=== PATIENT | male | born 1980 | race African-American/Black ===

== ENCOUNTER 2022-02-15 17:01 | Inpatient (IN) ==
--- NOTE | 2022-02-15 17:07 | ED Triage Note ---
Date of Service February 15, 2022 History of Present Illness This patient was briefly evaluated while in triage. An abbreviated physical exam was performed. This patient is a 41-year-old Male with no significant past medical history who presents to the ED for evaluation of left elbow and forearm injury. Left elbow pain. Pt. states "I fell on a truck bed I was cutting apart." Pt. states [facility] referred him here due to fracture and metal pieces in the left elbow. ME documentation notes possible sail sign, suspected radial head fracture, 9mm metal wire FB within the soft tissues of the forearm. Physical Exam VITALS: Vitals are noted on the nurse's note and reviewed by myself. GENERAL: This is a 41 year old black male, in no acute distress, nondiaphoretic, well-developed well-nourished. SKIN: No erythema, edema, ecchymosis HEAD: Normocephalic atraumatic. NECK: No JVD. LUNGS: No retractions or accessory muscle use. MUSCULOSKELETAL: Normal gait. Pt. in an arm sling and splint. NEURO: Patient was alert and oriented to person place and time. No focal neurological deficits. Initial orders for labs and / or imaging were placed and patient was placed in the waiting area until a bed is available. Please see further documentation for the full ED course. MDM / Impression Impression Impression: Olecranon bursitis of left elbow, Cellulitis of left forearm
[2022-02-15 18:40] LABS: Basophils # (auto) 0.04 K/uL (0-0.2); Basophils % (auto) 0.3 %; Eosinophils # (auto) 0.11 K/uL (0-0.50); Eosinophils % (auto) 0.8 %; Hemoglobin 12.5 g/dl (14.0-18.0); Immature Granulocytes # (auto) 0.04 K/uL (0.00-0.02); Immature Granulocytes % (auto) 0.3 %; Lymphocytes % (auto) 14.5 %; Mean Corpuscular Hemoglobin 27.5 pg (25.0-34.0); Mean Corpuscular Hgb Conc 33.8 g/dL (32.0-36.0); Mean Corpuscular Volume 81.3 fL (80.0-100.0); Mean Platelet Volume 9.6 fL (9.4-12.4); Monocytes % (auto) 6.1 %; Neutrophils # (auto) 10.24 K/uL (1.4-6.5); Platelet Count 337 K/uL (130-400); RDW Coefficient of Variation 13.2 % (11.5-14.5); RDW Standard Deviation 38.5 fL (36.4-46.3); Red Blood Count 4.55 M/uL (4.63-6.08); White Blood Count 13.13 K/ul (4.8-10.8)
--- NOTE | 2022-02-15 19:03 | XRay Report ---
XR elbow LT min 3V routine CLINICAL HISTORY: Fall , now edema, pain, erythema, chills. COMPARISON STUDY: No previous studies for comparison. TECHNIQUE: 3 left elbow views FINDINGS: Bones: There is no evidence for an acute fracture or dislocation. There is no lytic or blastic lesion . Joints: The joint spaces are maintained. There is no evidence for an intra-articular effusion or elev ation of the fat pads. The bones are in anatomic alignment. Soft tissues: There is soft tissue swelling seen surrounding the dorsum of the elbow which can be see n with olecranon bursitis. There is no radiopaque foreign body. IMPRESSION: 1. No acute osseous pathology. 2. Soft tissue swelling suspicious for olecranon bursitis. ACT 112: Negative or not required by law. Electronically signed by: Travon Spear M.D. 02/15/2022 7:02 PM
[2022-02-15] MEDS ORDERED: MoRPHine SULFATE 4 MG/ML 1 ML CARP\\VIAL IV STA (19:09)
[2022-02-15] MEDS ORDERED: ONDANSETRON INJ 2 MG/ML 2 ML VIAL IV STA (19:09)
[2022-02-15] MEDS ORDERED: SODIUM CHLORIDE 0.9% 1000ML 1,000 ML IV SCH (19:15)
[2022-02-15 19:25] LABS: Albumin Globulin Ratio 1.1 (0.9-2); Albumin Level 3.8 gm/dl (3.4-5.0); BUN Creatinine Ratio 24.1 (10-20); Bilirubin,Total 0.4 mg/dl (0.2-1.0); Calcium 8.7 mg/dl (8.5-10.1); Creatinine Clr Calc Pharmacy 192.1 ml/min; Est GFR (African American) 131.1 ml/min; Est GFR (Non-African American) 113.1 ml/min; Globulin 3.5 gm/dl (2.5-4.0); Total Protein 7.3 gm/dl (6.0-8.3)
[2022-02-15] MEDS ORDERED: OPTIRAY 320 125ml IV ONE (20:05)
--- NOTE | 2022-02-15 20:25 | CT Scan Report ---
CT forearm LT w con CLINICAL HISTORY: Fall, L elbow/forearm pain COMPARISON STUDY: Standard radiographs from 02/15/2022 CT DOSE: 480.24 mGy.cm TECHNIQUE: Standard CT of the left elbow is performed without IV contrast. Multiplanar reconstruction is performed. A dose lowering technique was utilized adhering to the principles of ALARA. FINDINGS: Bones: There is no evidence for an acute fracture or dislocation. There are no lytic or blastic lesio ns. Joints: There is moderate narrowing of the joint spaces of the elbow with subchondral sclerosis, subc hondral cyst formation or marginal osteophyte formation. Findings are consistent with old trauma and degenerative changes. There is no evidence for an intra-articular effusion. The bones are in anatomic alignment. Soft tissues: There is soft tissue swelling surrounding the elbow including the olecranon bursa and e xtending along the dorsum of the forearm. Findings are characteristic of possible cellulitis. Olecran on bursitis is also present. There are also 2, 2 mm metallic densities along the dorsum of the forearm characteristic of small for eign bodies within the soft tissues of the skin. IMPRESSION: 1. No acute osseous pathology. 2. Evidence for narrowing of the elbow joint spaces with secondary degenerative changes present joshua cteristic of old posttraumatic degenerative change. 3. No evidence for an intra-articular effusion. 4. Olecranon bursitis and evidence for cellulitis extending along the dorsum of the forearm. 5. 2, 2 mm metallic foreign bodies along the skin surface of the dorsum of the forearm. ACT 112: Negative or not required by law. Electronically signed by: Travon Spear M.D. 02/15/2022 8:23 PM
[2022-02-15] MEDS ORDERED: ceFAZolin 2000MG 2,000 MG/15 ML SYR IV STA (20:52)
[2022-02-15] MEDS ORDERED: DAPTOmycin 650 MG in SYRINGE 0 ML IV STA (20:56)
--- NOTE | 2022-02-15 21:43 | Emergency Department Note ---
History of Present Illness General Chief complaint: Elbow Injury/Pain Stated complaint: HURT L ELBOW AT WORK. WC Time Seen by Provider: 02/15/22 17:53 History of Present Illness Maximum Pain Intensity: 4 This is a 41-year-old male that presents to the emergency department [facility] with complaints of "left arm pain". Patient notes that this past he fell while at work. He notes that he struck his left elbow against a chaz object. He notes that there was a piece of metal protruding from his left elbow of which he removed. He notes that he did clean the region. He then had some chills at home over the weekend and upon returning to work today he noted significant discomfort to the left elbow and swelling. Patient notes that the swelling and warmth seemed to significantly worsen this morning. Patient denies any fevers. Patient denies any recent antibiotic use. Home Medications Medication Instructions Recorded Confirmed Type lisinopril 20 mg tablet 20 mg PO HS 02/16/21 02/15/22 History albuterol sulfate 90 mcg/actuation 2 puff inhalation Q4H PRN 02/15/22 02/15/22 H istory aerosol inhaler COUGH/SHORTNESS OF BREATH metformin 500 mg tablet 500 mg PO HS 02/15/22 02/15/22 History Allergies Allergy/AdvReac Type Severity Reaction Status Date / Time No Known Allergies Allergy Verified 02/15/22 20:55 Past Med/Surg History Medical History Hypertension Surgical History Hx of appendectomy Social History Smoking Status: Current some day smoker Feels Safe at Home: Yes Review of Systems A total of 10 systems reviewed and were otherwise negative Physical Exam Vital Signs Vital Signs - 24 hr 02/15/22 17:05 02/15/22 18:23 02/15/22 19:20 Temperature 36.3 C L Temperature Source Skin Pulse Rate 114 H Pulse Rate [Finger] 105 H 103 H Pulse Rhythm Regular Pulse Rhythm [Finger] Regular Pulse Strength Normal Pulse Strength [Finger] Normal Respiratory Rate 16 18 20 Respiratory Effort / Characteristics Non-Labored Spontaneous Non-Labored Spontaneous Respiratory Depth Normal Normal Normal Respiratory Pattern Regular Regular Blood Pressure 161/111 H Blood Pressure [Left Arm] 144/107 H 146/89 H Blood Pressure Mean 127 Blood Pressure Mean [Left Arm] 119 108 Blood Pressure Position Sitting Blood Pressure Position [Left Arm] Lying Pulse Oximetry 96 97 100 Oxygen Delivery Method Room Air Room Air Room Air Sepsis Recent Fever Within 48 Hours No Sepsis New/Unexplained Change in Mental Status No Sepsis Action Taken by Nursing No Action Required 02/15/22 20:58 Temperature Temperature Source Pulse Rate Pulse Rate [Finger] 105 H Pulse Rhythm Pulse Rhythm [Finger] Pulse Strength Pulse Strength [Finger] Respiratory Rate 18 Respiratory Effort / Characteristics Respiratory Depth Normal Respiratory Pattern Blood Pressure Blood Pressure [Left Arm] 139/92 Blood Pressure Mean Blood Pressure Mean [Left Arm] 107 Blood Pressure Position Blood Pressure Position [Left Arm] Pulse Oximetry 98 Oxygen Delivery Method Room Air Sepsis Recent Fever Within 48 Hours Sepsis New/Unexplained Change in Mental Status Sepsis Action Taken by Nursing VITAL SIGNS - Vital signs and nursing notes were reviewed. Stable and afebrile. GENERAL -41-year-old male appearing his stated age who is in no acute distress. Communicates well with provider and answers questions appropriately. SKIN -diffuse edema noted to the left elbow and proximal left forearm region with mild erythematous hue to the dorsal aspect of the left proximal forearm. 2 small healing breaks in the integument overlying the dorsal left elbow region. LUNGS - Chest wall symmetric without accessory muscle use, intercostals retractions, or central cyanosis. Normal vesicular breath sounds CTA B/L. No wheezes, rales, or rhonchi appreciated. CARDIAC - RRR with S1/S2. No murmur, rubs, or gallops appreciated. EXTREMITIES - No clubbing or peripheral cyanosis. Decreased range of motion of the left elbow secondary to pain overlying the dorsal aspect of the left elbow. Point tenderness to the left olecranon and surrounding soft tissue regions. No fluctuance. Significant soft tissue edema noted to the left dorsal elbow/left dorsal proximal forearm region. +5/5 strength noted in UE/LE bilaterally. NEUROLOGIC - Cranial nerves II through XII grossly intact. PSYCH - A&O, and cooperates fully with examiner. Pt is very pleasant and interacts well with examiner. Course Administered Medications Discontinued Medications Sodium Chloride (Nss 1000ml) 1,000 mls @ 999 mls/hr IV .Q1H1M GILBERT Stop: 02/15/22 20:15 Last Infusion: 02/15/22 20:22 Dose: 0 mls/hr Documented By: Admin: 02/15/22 19:20 Dose: 999 mls/hr Documented By: KATLYN Cefazolin Sodium (Ancef 2000mg) 2,000 mg in 15 mls @ 3.75 mls/min IV NOW STA Stop: 02/15/22 20:55 Last Admin: 02/15/22 20:58 Dose: 3.75 mls/min Documented By: KATLYN Daptomycin 650 mg/ Syringe 13 mls @ 6.5 mls/min IV NOW STA; Protocol Stop: 02/15/22 20:57 Last Admin: 02/15/22 21:29 Dose: 6.5 mls/min Documented By: KATLYN Ioversol (Optiray 320 125ml) 120 ml IV ONCE ONE Stop: 02/15/22 20:06 Last Admin: 02/15/22 20:06 Dose: 120 ml Documented By: SCARLET Morphine Sulfate (Morphine Sulfate 4 Mg/Ml 1 Ml Carp\\Vial) 4 mg IV NOW STA Stop: 02/15/22 19:10 Last Admin: 02/15/22 19:16 Dose: 4 mg Documented By: KATLYN Ondansetron HCl (Ondansetron Inj 2 Mg/Ml 2 Ml Vial) 4 mg IV NOW STA Stop: 02/15/22 19:10 Last Admin: 02/15/22 19:16 Dose: 4 mg Documented By: KATLYN Medical Decision Making Laboratory Data Result diagrams: 02/15/22 18:15 02/15/22 18:15 Lab Results 02/15/22 02/15/22 02/15/22 Range/Units 18:15 18:15 18:15 WBC 13.13 H (4.8-10.8) K/ul RBC 4.55 L (4.63-6.08) M/uL Hgb 12.5 L (14.0-18.0) g/dl Hct 37.0 L (40.1-51.0) % MCV 81.3 (80.0-100.0) fL MCH 27.5 (25.0-34.0) pg MCHC 33.8 (32.0-36.0) g/dL RDW Std Deviation 38.5 (36.4-46.3) fL RDW Coeff of Felton 13.2 (11.5-14.5) % Plt Count 337 (130-400) K/uL MPV 9.6 (9.4-12.4) fL Immature Gran % (Auto) 0.3 % Neut % (Auto) 78.0 % Lymph % (Auto) 14.5 % Charles % (Auto) 6.1 % Eos % (Auto) 0.8 % Baso % (Auto) 0.3 % Neut # (Auto) 10.24 H (1.4-6.5) K/uL Lymph # (Auto) 1.90 (1.2-3.4) K/uL Charles # (Auto) 0.80 (0.24-0.82) K/uL Eos # (Auto) 0.11 (0-0.50) K/uL Baso # (Auto) 0.04 (0-0.2) K/uL Immature Gran # (Auto) 0.04 H (0.00-0.02) K/uL Sodium (136-145) mmol/L Potassium (3.5-5.1) mmol/L Chloride (98-107) mmol/L Carbon Dioxide (21-32) mmol/L Anion Gap (3-11) BUN (6-23) mg/dl Creatinine (0.6-1.4) mg/dl Est Cr Clr Drug Dosing ml/min Est GFR ( Amer) ml/min Est GFR (Non-Af Amer) ml/min BUN/Creatinine Ratio (10-20) Glucose (70-99(Fasting)) mg/dl Lactate 1.8 (0.4-2.0) mmol/L Calcium (8.5-10.1) mg/dl Total Bilirubin (0.2-1.0) mg/dl AST (13-39) U/L ALT (7-52) U/L Alkaline Phosphatase (34-104) U/L Total Protein (6.0-8.3) gm/dl Albumin (3.4-5.0) gm/dl Globulin (2.5-4.0) gm/dl Albumin/Globulin Ratio (0.9-2) Procalcitonin < 0.05 (0-0.5) ng/ml SARS-CoV-2, RNA, NAAT (NEGATIVE) 02/15/22 02/15/22 Range/Units 18:15 21:00 WBC (4.8-10.8) K/ul RBC (4.63-6.08) M/uL Hgb (14.0-18.0) g/dl Hct (40.1-51.0) % MCV (80.0-100.0) fL MCH (25.0-34.0) pg MCHC (32.0-36.0) g/dL RDW Std Deviation (36.4-46.3) fL RDW Coeff of Felton (11.5-14.5) % Plt Count (130-400) K/uL MPV (9.4-12.4) fL Immature Gran % (Auto) % Neut % (Auto) % Lymph % (Auto) % Charles % (Auto) % Eos % (Auto) % Baso % (Auto) % Neut # (Auto) (1.4-6.5) K/uL Lymph # (Auto) (1.2-3.4) K/uL Charles # (Auto) (0.24-0.82) K/uL Eos # (Auto) (0-0.50) K/uL Baso # (Auto) (0-0.2) K/uL Immature Gran # (Auto) (0.00-0.02) K/uL Sodium 136 (136-145) mmol/L Potassium 4.0 (3.5-5.1) mmol/L Chloride 103 (98-107) mmol/L Carbon Dioxide 25 (21-32) mmol/L Anion Gap 8 (3-11) BUN 19 (6-23) mg/dl Creatinine 0.79 (0.6-1.4) mg/dl Est Cr Clr Drug Dosing 192.1 ml/min Est GFR ( Amer) 131.1 ml/min Est GFR (Non-Af Amer) 113.1 ml/min BUN/Creatinine Ratio 24.1 H (10-20) Glucose 128 H (70-99(Fasting)) mg/dl Lactate (0.4-2.0) mmol/L Calcium 8.7 (8.5-10.1) mg/dl Total Bilirubin 0.4 (0.2-1.0) mg/dl AST 17 (13-39) U/L ALT 21 (7-52) U/L Alkaline Phosphatase 63 (34-104) U/L Total Protein 7.3 (6.0-8.3) gm/dl Albumin 3.8 (3.4-5.0) gm/dl Globulin 3.5 (2.5-4.0) gm/dl Albumin/Globulin Ratio 1.1 (0.9-2) Procalcitonin (0-0.5) ng/ml SARS-CoV-2, RNA, NAAT NEGATIVE (NEGATIVE) Imaging Data Radiologist's Impression: Elbow X-Ray 02/15/22 18:09 XR elbow LT min 3V routine CLINICAL HISTORY: Fall , now edema, pain, erythema, chills. COMPARISON STUDY: No previous studies for comparison. TECHNIQUE: 3 left elbow views FINDINGS: Bones: There is no evidence for an acute fracture or dislocation. There is no lytic or blastic lesion. Joints: The joint spaces are maintained. There is no evidence for an intra- articular effusion or elevation of the fat pads. The bones are in anatomic alig nment. Soft tissues: There is soft tissue swelling seen surrounding the dorsum of the elbow which can be seen with olecranon bursitis. There is no radiopaque foreign body. IMPRESSION: 1. No acute osseous pathology. 2. Soft tissue swelling suspicious for olecranon bursitis. ACT 112: Negative or not required by law. Electronically signed by: Travon Spear M.D. 02/15/2022 7:[address] 02/15/22 19:32 CT forearm LT w con CLINICAL HISTORY: Fall, L elbow/forearm pain COMPARISON STUDY: Standard radiographs from 02/15/2022 CT DOSE: 480.24 mGy.cm TECHNIQUE: Standard CT of the left elbow is performed without IV contrast. Multiplanar reconstruction is performed. A dose lowering technique was utilized adhering to the principles of ALARA. FINDINGS: Bones: There is no evidence for an acute fracture or dislocation. There are no lytic or blastic lesions. Joints: There is moderate narrowing of the joint spaces of the elbow with subchondral sclerosis, subchondral cyst formation or marginal osteophyte formation. Findings are consistent with old trauma and degenerative changes. T here is no evidence for an intra-articular effusion. The bones are in anatomic alignment. Soft tissues: There is soft tissue swelling surrounding the elbow including the olecranon bursa and extending along the dorsum of the forearm. Findings are characteristic of possible cellulitis. Olecranon bursitis is also present. There are also 2, 2 mm metallic densities along the dorsum of the forearm characteristic of small foreign bodies within the soft tissues of the skin. IMPRESSION: 1. No acute osseous pathology. 2. 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 3. No evidence for an intra-articular effusion. 4. Olecranon bursitis and evidence for cellulitis extending along the dorsum of the forearm. 5. 2, 2 mm metallic foreign bodies along the skin surface of the dorsum of the forearm. ACT 112: Negative or not required by law. Electronically signed by: Travon Spear M.D. 02/15/2022 8:23 PM MDM Narrative Patient was seen and evaluated as above in room D02. Review was performed of nursing notes and vital signs. After obtaining a thorough history and physical examination the above work up was performed. Patient presents to us today for evaluation of a left elbow region injury that occurred this past while at work. He was referred by [employer]. He was in a well-padded Ortho-Glass splint on arrival. This was removed. There is concern for olecranon bursitis with surrounding cellulitis clinically. Options of care were discussed with the patient. We were not able to successfully upload the imaging from [facility] [employer]. Dedicated films were obtained here with results as above. No fracture. The radiopaque foreign bodies are not in the area of concern and are felt to be incidental. Patient does note that the metallic foreign body that he had when he fell he already removed on his own. There is no foreign body in that area on examination today. CT imaging was obtained of the left elbow region. There is concern for olecranon bursitis and cellulitis overlying the dorsal forearm area which clinically correlates. He was medicated with IV morphine for pain and IV Zofran for any nausea. He was given IV fluids. Labs reveal leukocytosis 13.13. Mild anemia with hemoglobin of 12.5. No emergent metabolic disturbance. Mild hyperglycemia 128. Pro-Jan negative. Lactate normal. COVID test negative. I do believe that further treatment in the inpatient setting is warranted in regard to IV antibiotics for the left forearm cellulitis. I will start him on IV Ancef as well as IV daptomycin. Daptomycin was chosen for vancomycin given the clinical scenario. I did discuss dosing with pharmacy staff. Case discussed with the hospitalist. Please refer to further documentation regarding his stay. GCS: 15 In the evaluation and treatment of this patient the following differential diagnoses were entertained: Fracture, dislocation, subluxation, contusion, abscess, cellulitis, bursitis, septic joint, among others Impression & Plan Olecranon bursitis of left elbow, Cellulitis of left forearm Discharge Plan Visit Data Chief Complaint: Elbow Injury/Pain Stated Complaint: HURT L ELBOW AT WORK. WC ED Provider: Tee Castillo ED Midlevel Provider: En Reese Discharge Problem: Olecranon bursitis of left elbow, Cellulitis of left forearm Patient Disposition: Admitted As Inpatient Condition: Good Forms Stand Alone Forms: [facility] Prescriptions Prescriptions: No Action metformin 500 mg tablet 500 mg PO HS albuterol sulfate 90 mcg/actuation HFA aerosol inhaler 2 puff INHALATION Q4H PRN (Reason: COUGH/SHORTNESS OF BREATH) lisinopril 20 mg tablet 20 mg PO HS Referrals Referrals: Bindu Johnson PA-C [Primary Care Provider] -
[2022-02-15] MEDS ORDERED: KETOROLAC 30 MG/ML VIAL IV STA (22:26)
--- NOTE | 2022-02-16 02:05 | History and Physical Report ---
DATE OF ADMISSION: 02/15/2022. CHIEF COMPLAINT: Left olecranon bursitis and cellulitis. HISTORY OF PRESENT ILLNESS: This 41-year-old male with past medical history significant for prediabetes, hypertension, morbid obesity comes because of left elbow infection. The patient says last , he fell on the left elbow on rusted objects. There was a foreign body, which he took it off and by the weekend,elbow got swollen up and [facility] showed some foreign body and thought there could be some fracture and sent to the hospital ER. In the ER, CAT scan was done and it showed olecranon bursitis and cellulitis and two 2-mm metallic foreign bodies along the skin surface on the dorsum of the forearm. The patient was given IV dapto and Keflex in the ER, and given pain medication. Currently, says still there is some pain and he has painful movements at the left elbow.He is afebrile, hemodynamically stable. Denies any headache, no dizziness, no blurred visions, no earache, no runny nose, no sore throat, no cough, no chest pain, no shortness of breath, no nausea, no abdominal pain. Normal bowel and bladder movements. ALLERGIES: No known drug allergies. PAST MEDICAL HISTORY: As mentioned above. PAST SURGICAL HISTORY: Appendectomy, dental surgery. MEDICATIONS: The patient is on lisinopril 20 mg p.o. daily, metformin 500 mg p.o. at bedtime, albuterol 2 puffs inhalation q.4h. p.r.n. FAMILY HISTORY: Significant for brother has alcoholism; daughter cancer of the skin long the ear,; mother has thyroid disorder, hepatitis; brother has hypothermia, overdose. PAST MEDICAL HISTORY: As mentioned above. SOCIAL HISTORY: No smoking, no alcohol currently. Marijuana 2-3 times weekly as per the Epic. REVIEW OF SYSTEMS: As per HPI. Rest of review of systems is negative. PHYSICAL EXAMINATION: GENERAL: The patient is obese, not in acute distress. VITAL SIGNS: Temperature 36.3, pulse 97, respiratory rate 20, blood pressure 138/95, oxygen 97% on room air. HEENT: Pupils equal, round and reactive to light. Oral mucosa moist. NECK: No JVD. No neck masses seen. CARDIOVASCULAR: S1 and S2 heard. Regular rate and rhythm. No murmur, no gallop. RESPIRATORY SYSTEM: Normal AP diameter. No accessory muscle use. No wheezing, no crackles. ABDOMEN: Soft, bowel sounds present, nontender, no distention. CENTRAL NERVOUS SYSTEM: Cranial nerves II through XII are grossly intact, nonfocal. EXTREMITIES: Left elbow is swollen, had painful movements. No lower extremity edema present. LABORATORY DATA: WBC 13.1, hemoglobin 12.5, hematocrit 37, platelets 137. Sodium 136, potassium 4, chloride 103, bicarbonate 25, BUN 19, creatinine 0.7, serum glucose 128, lactate 1.8, calcium 8.7, total bilirubin 0.4, AST 17, ALT 21, alkaline phosphatase 63. Procalcitonin less than 0.05. SARS-CoV-2 rapid test negative. IMAGING DATA: Elbow x-ray on the left side, no acute osseous pathology, soft tissue swelling suspicious for olecranon bursitis. Forearm CT, no acute osseous pathology. No evidence for narrowing of the elbow joint spaces with secondary degenerative changes, persistent characteristics of old posttraumatic degenerative change. No evidence for any intraarticular effusion. Olecranon bursitis and evidence for cellulitis extending along the dorsum of the forearm. Two 2-mm metallic foreign bodies along the skin surface on the dorsum of the forearm. ASSESSMENT AND PLAN: This is a 41-year-old male, who presents due to left elbow olecranon bursitis and cellulitis. 1. Left elbow olecranon bursitis and cellulitis and foreign body, fell on the rusted objects on . Seems to have tetanus immunization in 2019 as per Epic. Received dapto and Keflex in the ER. Will continue with IV zosyn, IV fluids. We will keep him n.p.o. until seen by Orthopedics in the a.m. Monitor in the medical floor. 2. Prediabetes. We will hold metformin, insulin sliding scale. Follow HbA1c level. 3. History of hypertension. Continue his lisinopril. 4. Obesity. Needs counseling. 5. Deep venous thrombosis prophylaxis: Sequential compression devices for now. DISPOSITION: Admit to medical floor. Expect to discharge home and follow with family doctor. Job ID: [id number] [facility]
[2022-02-16] MEDS ORDERED: ALBUTEROL HFA 8 GM INHALER INH PRN (02:31)
[2022-02-16] MEDS ORDERED: POLYETHYLENE (MIRALAX) 17 GM PACK PO PRN (02:31)
[2022-02-16] MEDS ORDERED: KETOROLAC TROMETHAMINE 15 MG/ML VIAL IV PRN (02:31)
[2022-02-16] MEDS ORDERED: ONDANSETRON INJ 2 MG/ML 2 ML VIAL IV PRN (02:31)
[2022-02-16] MEDS: SODIUM CHLORIDE 0.9% 1000ML 1,000 ML IV SCH ×2 (02:31→10:28)
[2022-02-16] MEDS ORDERED: ACETAMINOPHEN 325 MG TAB PO PRN (02:31)
[2022-02-16] MEDS ORDERED: GLUCOSE 40% GEL 15 GM TUBE PO PRN (03:15)
[2022-02-16] MEDS ORDERED: CARBOHYDRATES FOR HYPOGLYCEMIA PO PRN (03:15)
[2022-02-16] MEDS ORDERED: DEXTROSE 50% 50 ML SYRINGE IV PRN (03:15)
[2022-02-16] MEDS ORDERED: GLUCOSE 10 TAB/TUBE PO PRN (03:15)
[2022-02-16] MEDS ORDERED: GLUCAGON FOR INJ 1 MG VIAL IM PRN (03:15)
[2022-02-16] MEDS ORDERED: INSULIN ASPART PER UNIT SC SCH (06:00)
[2022-02-16 06:14] LABS: Basophils # (auto) 0.05 K/uL (0-0.2); Basophils % (auto) 0.5 %; Eosinophils # (auto) 0.16 K/uL (0-0.50); Eosinophils % (auto) 1.4 %; Hematocrit (blood only) 34.9 % (40.1-51.0); Hemoglobin 11.5 g/dl (14.0-18.0); Immature Granulocytes # (auto) 0.02 K/uL (0.00-0.02); Immature Granulocytes % (auto) 0.2 %; Lymphocytes # (auto) 1.88 K/uL (1.2-3.4); Mean Corpuscular Hemoglobin 27.5 pg (25.0-34.0); Mean Corpuscular Volume 83.5 fL (80.0-100.0); Mean Platelet Volume 9.3 fL (9.4-12.4); Monocytes # (auto) 1.13 K/uL (0.24-0.82); Monocytes % (auto) 10.2 %; Neutrophils % (auto) 70.7 %; Platelet Count 293 K/uL (130-400); RDW Coefficient of Variation 13.2 % (11.5-14.5); RDW Standard Deviation 40.1 fL (36.4-46.3); Red Blood Count 4.18 M/uL (4.63-6.08); White Blood Count 11.04 K/ul (4.8-10.8)
[2022-02-16 06:41] LABS: BUN Creatinine Ratio 24.6 (10-20); Est GFR (African American) 138.6 ml/min; Est GFR (Non-African American) 119.6 ml/min; Magnesium 1.8 mg/dl (1.7-2.4)
[2022-02-16 07:18] LABS: Estimated Average Glucose 140 mg/dl; Hemoglobin A1C 6.5 % (4.5-5.6)
[2022-02-16] MEDS ORDERED: PIPERACILLIN/TAZOBACTAM 3.375 GM in DEXTROSE 5% 100 ML IV SCH (08:00)
[2022-02-16] MEDS ORDERED: oxyCODONE HCL IR 5 MG TAB (IMMEDIATE RELEASE) PO PRN (12:03)
[2022-02-16] MEDS: INSULIN ASPART PER UNIT SC SCH ×2 (12:15→17:58)
[2022-02-16] MEDS: PIPERACILLIN/TAZOBACTAM 4.5 GM in DEXTROSE 5% 100 ML IV SCH (16:46)
--- NOTE | 2022-02-16 17:57 | Hospitalist Progress Note ---
Date of Service February 16, 2022 Assessment & Plan (1) Cellulitis of left forearm: (2) Olecranon bursitis of left elbow: Plan 41-year-old male, who presented to the ED due to worsening left elbow swelling and pain after falling down on left elbow on rusted objects on 02/11 CT forearm 1. No acute osseous pathology. 2. 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 3. No evidence for an intra-articular effusion. 4. Olecranon bursitis and evidence for cellulitis extending along the dorsum of the forearm. 5. 2, 2 mm metallic foreign bodies along the skin surface of the dorsum of the forearm. xray left elbow 1. No acute osseous pathology. 2. Soft tissue swelling suspicious for olecranon bursitis. 1. Left elbow olecranon bursitis and cellulitis and foreign body after falling on the rusted objects- Had tetanus immunization in 08/2019 as per [facility].Continue empiric zosyn started on admission pending blood culture results. Ortho eval still pending. Will keep npo overnight 2. Prediabetes. A1c 6.5, SSI with meals. Hold metformin. 3. HTN- continue lisinopril. 4. Obesity- weight loss recommended DVT ppx- SCDs. Ambulation Dispo- Pending ortho eval and blood clx results and pending improvement in infection- on iv antibiotics Updated family at bedside Admission and Anticipated Discharge Date Admission Date: February 15, 2022 Subjective Complains of swelling and pain in left elbow and hand which improved with cyrus dol. No fever or chills. He has not been evaluated by ortho yet. He is hungry as he has been npo awaiting ortho eval. Physical Exam Physical Exam: General: Morbidly obese, sitting comfortably in bed, not in distress, on room air HEENT: EOMI, ELISABETH, MMM Chest: Clear breath sounds bilaterally, no wheezes or crackles CVS: Regular rate and rhythm, normal heart sounds, no murmur Abdomen: Soft, non tender, not distended, normal bowel sounds Neuro: Awake, alert, oriented, conversing well, non focal Extremities: Left elbow tender, swollen, warm- left forearm swollen- distal NV status intact. Results & Data Results & Data ([facility]) Vital Signs (Past 12 Hours) Vital Signs Temp Pulse Resp BP Pulse Ox O2 Del Method 02/16/22 15:12 37.1 C 90 14 143/85 H 98 Room Air 02/16/22 08:08 37.1 C 90 16 133/84 96 Room Air Laboratory Results Short CBC 02/15/22 02/16/22 Range/Units 18:15 05:55 WBC 13.13 H 11.04 H (4.8-10.8) K/ul Hgb 12.5 L 11.5 L (14.0-18.0) g/dl Hct 37.0 L 34.9 L (40.1-51.0) % Plt Count 337 293 (130-400) K/uL BMP 02/15/22 02/16/22 18:15 05:55 Sodium 136 137 Potassium 4.0 4.0 Chloride 103 107 Carbon Dioxide 25 25 BUN 19 17 Creatinine 0.79 0.69 Glucose 128 H 115 H Calcium 8.7 8.0 L Liver Function 02/15/22 Range/Units 18:15 Total Bilirubin 0.4 (0.2-1.0) mg/dl AST 17 (13-39) U/L ALT 21 (7-52) U/L Alkaline Phosphatase 63 (34-104) U/L Albumin 3.8 (3.4-5.0) gm/dl Medications Administered Current Inpatient Medications Acetaminophen (Acetaminophen 325 Mg Tab) 650 mg PO Q4H PRN PRN Reason: pain/fever Stop: 03/18/22 02:30 Albuterol (Albuterol Hfa 8 Gm Inhaler) 2 puffs INH Q4H PRN PRN Reason: COUGH/SHORTNESS OF BREATH Stop: 03/18/22 02:30 Dextrose (Dextrose 50% 50 Ml Syringe) 25 - 50 ml IV UD PRN; Protocol PRN Reason: Hypoglycemia Protocol Stop: 03/18/22 03:14 Glucagon (Glucagon For Inj 1 Mg Vial) 1 mg IM UD PRN; Protocol PRN Reason: Hypoglycemia Protocol Stop: 03/18/22 03:14 Glucose (Glucose 40% Gel 15 Gm Tube) 15 - 30 gm PO UD PRN; Protocol PRN Reason: Hypoglycemia Protocol Stop: 03/18/22 03:14 Glucose (Glucose 10 Tab/Tube) 4 - 8 tab PO UD PRN; Protocol PRN Reason: Hypoglycemia Protocol Stop: 03/18/22 03:14 Piperacillin Sod/Tazobactam (Sod 4.5 gm/ Dextrose) 120 mls @ 30 mls/hr IV Q8H [facility]; Protocol Stop: 02/23/22 15:59 Last Admin: 02/16/22 16:46 Dose: 30 mls/hr Insulin Aspart (Insulin Aspart Per Unit) 0 units SC Q6 [facility] Stop: 03/18/22 11:59 Last Admin: 02/16/22 12:15 Dose: Not Given Ketorolac Tromethamine (Ketorolac Tromethamine 15 Mg/Ml Vial) 15 mg IV Q6H PRN PRN Reason: Pain Stop: 02/21/22 02:30 Last Admin: 02/16/22 10:32 Dose: 15 mg Lisinopril (Lisinopril 20 Mg Tab) 20 mg PO HS [facility] Stop: 03/18/22 20:59 Miscellaneous (Carbohydrates For Hypoglycemia ) 15 - 30 gm PO UD PRN PRN Reason: Hypoglycemia Treatment Stop: 03/18/22 03:14 Ondansetron HCl (Ondansetron Inj 2 Mg/Ml 2 Ml Vial) 4 mg IV Q6H PRN PRN Reason: Nausea Stop: 03/18/22 02:30 Oxycodone HCl (Oxycodone Hcl Ir 5 Mg Tab (Immediate Release)) 5 mg PO Q4 PRN PRN Reason: Pain Stop: 03/02/22 12:02 Polyethylene Glycol (Polyethylene (Miralax) 17 Gm Pack) 17 gm PO DAILY PRN PRN Reason: Constipation Stop: 03/18/22 02:30
[2022-02-16] MEDS: lisinopril 20 MG TAB PO SCH (21:21)
--- NOTE | 2022-02-16 22:42 | Consultation Report ---
ORTHOPEDIC CONSULTATION DATE OF SERVICE: 02/16/2022 HISTORY OF PRESENT ILLNESS: The patient is a 41-year-old male who presents to the Emergency Room and admission through the evening last night with cellulitis over the extensor mechanism of his left elb ow. He apparently had a fall last and developed cellulitis. He was seen then in the [facility] and was admitted for intravenous antibiotics. Upon clinical examination and evaluation of h is x-rays and CT scan, no fracture was noted, I do not see any bony injury. He does have generalized cellulitis over the extensor mechanism extending to about the distal third of his upper arm over to the extensor mechanism, down the back of his extensor mechanism, but no areas of kaia fluctuation or areas to be drained are noted at this time. It is just generalized cellulitis. He has just been st arted on IV antibiotics. I would recommend continued IV antibiotics and continued observation. At t his point, there is no particular area of fluctuance to drain. We will continue to follow with you o n intravenous antibiotics. Apparently, the patient was given daptomycin and Keflex in the Emergency Room. Job ID: [id number]
[2022-02-17] MEDS: PIPERACILLIN/TAZOBACTAM 4.5 GM in DEXTROSE 5% 100 ML IV SCH ×3 (00:28→16:07)
[2022-02-17] MEDS: INSULIN ASPART PER UNIT SC SCH ×4 (00:30→21:00)
[2022-02-17 09:14] LABS: Basophils # (auto) 0.03 K/uL (0-0.2); Basophils % (auto) 0.3 %; Eosinophils # (auto) 0.11 K/uL (0-0.50); Eosinophils % (auto) 1.1 %; Hematocrit (blood only) 36.1 % (40.1-51.0); Hemoglobin 11.8 g/dl (14.0-18.0); Immature Granulocytes # (auto) 0.03 K/uL (0.00-0.02); Immature Granulocytes % (auto) 0.3 %; Lymphocytes # (auto) 1.53 K/uL (1.2-3.4); Lymphocytes % (auto) 15.8 %; Mean Corpuscular Hemoglobin 27.2 pg (25.0-34.0); Mean Corpuscular Hgb Conc 32.7 g/dL (32.0-36.0); Mean Corpuscular Volume 83.2 fL (80.0-100.0); Mean Platelet Volume 9.5 fL (9.4-12.4); Monocytes # (auto) 0.79 K/uL (0.24-0.82); Monocytes % (auto) 8.2 %; Neutrophils # (auto) 7.18 K/uL (1.4-6.5); Neutrophils % (auto) 74.3 %; Platelet Count 303 K/uL (130-400); RDW Coefficient of Variation 13.2 % (11.5-14.5); Red Blood Count 4.34 M/uL (4.63-6.08); White Blood Count 9.67 K/ul (4.8-10.8)
[2022-02-17 09:45] LABS: BUN Creatinine Ratio 17.9 (10-20); Calcium 8.8 mg/dl (8.5-10.1); Creatinine Clr Calc Pharmacy 203.9 ml/min; Est GFR (African American) 140.3 ml/min
--- NOTE | 2022-02-17 15:22 | Orthopedic Progress Note ---
Date of Service February 17, 2022 Assessment & Plan (1) Cellulitis of left forearm: Plan: Forearm and lower arm cellulitis. No clear fluid collection that would require surgical intervention at this time. I believe he still needs some more IV antibiotics to treat present condition and would continue IV antibiotics until some of the arm cellulitis is receding prior to placing on oral antibiotics. Length of treatment could be up to 5 days of IV antibiotics or longer depending on how he responds. Would switch to oral antibiotics when stable. Admission and Anticipated Discharge Date Admission Date: February 15, 2022 Subjective Patient reports that his arm has been feeling better since receiving treatment. Some of the swelling has receded. Review of Systems Review of Systems: No fever or chills Physical Exam Physical Exam: Moderate swelling left forearm with small punctate areas with scabs healed over with no drainage with no substantial fluid collection in olecranon bursa but some erythema to posterior mid arm area which is faint. Erythema somewhat difficult to ascertain due to his skin color. No pain with elbow range of motion. No obvious elbow effusion. Results & Data ([facility]) Vital Signs (Past 12 Hours) Vital Signs Temp Pulse Resp BP Pulse Ox O2 Del Method 02/17/22 07:39 36.8 C 97 H 16 142/88 H 96 Room Air Laboratory Results White blood cell count 9.67
--- NOTE | 2022-02-17 17:26 | Hospitalist Progress Note ---
Date of Service February 17, 2022 Assessment & Plan (1) Cellulitis of left forearm: (2) Olecranon bursitis of left elbow: Plan 41-year-old male, who presented to the ED due to worsening left elbow swelling and pain after falling down on left elbow on rusted objects on 02/11 CT forearm 1. No acute osseous pathology. 2. 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 3. No evidence for an intra-articular effusion. 4. Olecranon bursitis and evidence for cellulitis extending along the dorsum of the forearm. 5. 2, 2 mm metallic foreign bodies along the skin surface of the dorsum of the forearm. xray left elbow 1. No acute osseous pathology. 2. Soft tissue swelling suspicious for olecranon bursitis. Left elbow olecranon bursitis and cellulitis and foreign body after falling on the rusted objects- Had tetanus immunization in 08/2019 as per [facility]. Continue empiric zosyn started on admission pending blood culture results. Appreciate Ortho input and recommendation to continue antibiotic intravenously for now Watch for further improvement and then change to oral antibiotic in about 5 days Prediabetes. A1c 6.5, SSI with meals. Hold metformin. HTN- continue lisinopril. Obesity- weight loss recommended DVT ppx- SCDs. Ambulation Dispo- Will continue IV antibiotic as per Ortho Admission and Anticipated Discharge Date Admission Date: February 15, 2022 Subjective 02/17/2022 The patient was seen and examined in medical floor His left upper extremity swelling has improved a lot Denies any pain in the elbow and movement of the elbow joint remains nonpainful Review of Systems Review of Systems: All systems reviewed and are unremarkable except as noted below Physical Exam Physical Exam: Lying in bed without any symptoms Constitutional: well developed, well nourished and + obese; not ill appearing Eyes: PERRL, conjunctivae normal, anicteric sclerae ENMT: external ear and nose normal, oropharynx normal Neck: trachea midline, no thyromegaly Respiratory: no respiratory distress Auscultation: + lungs not clear to auscultation Cardiovascular: Rate/Rhythm: regular rate and regular rhythm; not tachycardic Heart Sounds: normal S1 and normal S2; no murmur Extremities: no edema Gastrointestinal (Abdomen): Inspection/Auscultation: normal bowel sounds; abdomen not distended Percussion/Palpation: abdomen soft; abdomen nontender Musculoskeletal: Left upper extremity swelling has improved a lot. No pain and no tenderness over olecranon bursa, Neurologic: Alert, awake and oriented x3. No focal sensory or no motor deficit appreciated Results & Data Results & Data ([facility]) Vital Signs (Past 12 Hours) Vital Signs Temp Pulse Resp BP Pulse Ox O2 Del Method 02/17/22 07:39 36.8 C 97 H 16 142/88 H 96 Room Air Laboratory Results Short CBC 02/17/22 Range/Units 08:55 WBC 9.67 (4.8-10.8) K/ul Hgb 11.8 L (14.0-18.0) g/dl Hct 36.1 L (40.1-51.0) % Plt Count 303 (130-400) K/uL BMP 02/17/22 08:55 Sodium 139 Potassium 4.0 Chloride 107 Carbon Dioxide 24 BUN 12 Creatinine 0.67 Glucose 103 H Calcium 8.8 Medications Administered Current Inpatient Medications Acetaminophen (Acetaminophen 325 Mg Tab) 650 mg PO Q4H PRN PRN Reason: pain/fever Stop: 03/18/22 02:30 Last Admin: 02/16/22 21:28 Dose: 650 mg Albuterol (Albuterol Hfa 8 Gm Inhaler) 2 puffs INH Q4H PRN PRN Reason: COUGH/SHORTNESS OF BREATH Stop: 03/18/22 02:30 Dextrose (Dextrose 50% 50 Ml Syringe) 25 - 50 ml IV UD PRN; Protocol PRN Reason: Hypoglycemia Protocol Stop: 03/18/22 03:14 Glucagon (Glucagon For Inj 1 Mg Vial) 1 mg IM UD PRN; Protocol PRN Reason: Hypoglycemia Protocol Stop: 03/18/22 03:14 Glucose (Glucose 40% Gel 15 Gm Tube) 15 - 30 gm PO UD PRN; Protocol PRN Reason: Hypoglycemia Protocol Stop: 03/18/22 03:14 Glucose (Glucose 10 Tab/Tube) 4 - 8 tab PO UD PRN; Protocol PRN Reason: Hypoglycemia Protocol Stop: 03/18/22 03:14 Piperacillin Sod/Tazobactam (Sod 4.5 gm/ Dextrose) 120 mls @ 30 mls/hr IV Q8H [facility]; Protocol Stop: 02/23/22 15:59 Last Admin: 02/17/22 16:07 Dose: 30 mls/hr Ketorolac Tromethamine (Ketorolac Tromethamine 15 Mg/Ml Vial) 15 mg IV Q6H PRN PRN Reason: Pain Stop: 02/21/22 02:30 Last Admin: 02/16/22 10:32 Dose: 15 mg Lisinopril (Lisinopril 20 Mg Tab) 20 mg PO HS [facility] Stop: 03/18/22 20:59 Last Admin: 02/16/22 21:21 Dose: 20 mg Miscellaneous (Carbohydrates For Hypoglycemia ) 15 - 30 gm PO UD PRN PRN Reason: Hypoglycemia Treatment Stop: 03/18/22 03:14 Ondansetron HCl (Ondansetron Inj 2 Mg/Ml 2 Ml Vial) 4 mg IV Q6H PRN PRN Reason: Nausea Stop: 03/18/22 02:30 Oxycodone HCl (Oxycodone Hcl Ir 5 Mg Tab (Immediate Release)) 5 mg PO Q4 PRN PRN Reason: Pain Stop: 03/02/22 12:02 Polyethylene Glycol (Polyethylene (Miralax) 17 Gm Pack) 17 gm PO DAILY PRN PRN Reason: Constipation Stop: 03/18/22 02:30
[2022-02-17] MEDS: lisinopril 20 MG TAB PO SCH (21:11)
[2022-02-18] MEDS: PIPERACILLIN/TAZOBACTAM 4.5 GM in DEXTROSE 5% 100 ML IV SCH ×3 (00:49→16:36)
[2022-02-18 08:28] LABS: Basophils # (auto) 0.03 K/uL (0-0.2); Basophils % (auto) 0.4 %; Eosinophils # (auto) 0.13 K/uL (0-0.50); Eosinophils % (auto) 1.6 %; Hematocrit (blood only) 39.3 % (40.1-51.0); Immature Granulocytes # (auto) 0.03 K/uL (0.00-0.02); Immature Granulocytes % (auto) 0.4 %; Lymphocytes # (auto) 1.48 K/uL (1.2-3.4); Lymphocytes % (auto) 18.4 %; Mean Corpuscular Hgb Conc 33.1 g/dL (32.0-36.0); Mean Corpuscular Volume 81.5 fL (80.0-100.0); Mean Platelet Volume 9.6 fL (9.4-12.4); Monocytes # (auto) 0.67 K/uL (0.24-0.82); Monocytes % (auto) 8.3 %; Neutrophils # (auto) 5.72 K/uL (1.4-6.5); Neutrophils % (auto) 70.9 %; Platelet Count 328 K/uL (130-400); RDW Coefficient of Variation 13.1 % (11.5-14.5); RDW Standard Deviation 38.5 fL (36.4-46.3); Red Blood Count 4.82 M/uL (4.63-6.08); White Blood Count 8.06 K/ul (4.8-10.8)
[2022-02-18] MEDS: INSULIN ASPART PER UNIT SC SCH ×4 (08:51→22:54)
[2022-02-18 08:58] LABS: BUN Creatinine Ratio 19.1 (10-20); Calcium 8.9 mg/dl (8.5-10.1); Creatinine Clr Calc Pharmacy 200.9 ml/min; Est GFR (African American) 139.4 ml/min; Est GFR (Non-African American) 120.3 ml/min; Potassium 3.9 mmol/L (3.5-5.1)
--- NOTE | 2022-02-18 15:08 | Hospitalist Progress Note ---
Date of Service February 18, 2022 Assessment & Plan (1) Cellulitis of left forearm: (2) Olecranon bursitis of left elbow: Plan 41-year-old male, who presented to the ED due to worsening left elbow swelling and pain after falling down on left elbow on rusted objects on 02/11 CT forearm 1. No acute osseous pathology. 2. 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 3. No evidence for an intra-articular effusion. 4. Olecranon bursitis and evidence for cellulitis extending along the dorsum of the forearm. 5. 2, 2 mm metallic foreign bodies along the skin surface of the dorsum of the forearm. xray left elbow 1. No acute osseous pathology. 2. Soft tissue swelling suspicious for olecranon bursitis. Left elbow olecranon bursitis and cellulitis and foreign body after falling on the rusted objects- Had tetanus immunization in 08/2019 as per [facility]. Continue empiric zosyn started on admission pending blood culture results. Appreciate Ortho input and recommendation to continue antibiotic intravenously for now Watch for further improvement and then change to oral antibiotic in about 5 days Left upper extremity is even better today with minimal swelling involving the forearm No pain with movement of the elbow joint We will continue IV antibiotic for now and possible discharge tomorrow Prediabetes. A1c 6.5, SSI with meals. Hold metformin. HTN- continue lisinopril. Obesity- weight loss recommended DVT ppx- SCDs. Ambulation Dispo- Will continue IV antibiotic as per Ortho Admission and Anticipated Discharge Date Admission Date: February 15, 2022 Subjective 02/17/2022 The patient was seen and examined in medical floor His left upper extremity swelling has improved a lot Denies any pain in the elbow and movement of the elbow joint remains nonpainful 02/18/2022 Patient was seen and examined in medical floor His left upper extremity swelling has decreased and is almost normal Denies any pain No fever and no chills Review of Systems Review of Systems: All systems reviewed and are unremarkable except as noted below Physical Exam Physical Exam: Lying in bed without any symptoms Constitutional: well developed, well nourished and + obese; not ill appearing Eyes: PERRL, conjunctivae normal, anicteric sclerae ENMT: external ear and nose normal, oropharynx normal Neck: trachea midline, no thyromegaly Respiratory: no respiratory distress Auscultation: + lungs not clear to auscultation Cardiovascular: Rate/Rhythm: regular rate and regular rhythm; not tachycardic Heart Sounds: normal S1 and normal S2; no murmur Extremities: no edema Gastrointestinal (Abdomen): Inspection/Auscultation: normal bowel sounds; abdomen not distended Percussion/Palpation: abdomen soft; abdomen nontender Musculoskeletal: Very minimal edema involving the left forearm Neurologic: normal touch/pain/proprioception and CN's II-XI intact bilaterally Psychiatric: A+Ox3, euthymic affect Lymphatic: no cervical or axillary lymphadenopathy Results & Data Results & Data ([facility]) Vital Signs (Past 12 Hours) Vital Signs Temp Pulse Resp BP BP Pulse Ox O2 Del Method 02/18/22 14:40 37 C 98 H 16 126/88 97 Room Air 02/18/22 07:47 37 C 85 16 121/74 94 Room Air Laboratory Results Short CBC 02/18/22 Range/Units 07:59 WBC 8.06 (4.8-10.8) K/ul Hgb 13.0 L (14.0-18.0) g/dl Hct 39.3 L (40.1-51.0) % Plt Count 328 (130-400) K/uL BMP 02/18/22 07:59 Sodium 136 Potassium 3.9 Chloride 105 Carbon Dioxide 24 BUN 13 Creatinine 0.68 Glucose 118 H Calcium 8.9 Medications Administered Current Inpatient Medications Acetaminophen (Acetaminophen 325 Mg Tab) 650 mg PO Q4H PRN PRN Reason: pain/fever Stop: 03/18/22 02:30 Last Admin: 02/16/22 21:28 Dose: 650 mg Albuterol (Albuterol Hfa 8 Gm Inhaler) 2 puffs INH Q4H PRN PRN Reason: COUGH/SHORTNESS OF BREATH Stop: 03/18/22 02:30 Dextrose (Dextrose 50% 50 Ml Syringe) 25 - 50 ml IV UD PRN; Protocol PRN Reason: Hypoglycemia Protocol Stop: 03/18/22 03:14 Glucagon (Glucagon For Inj 1 Mg Vial) 1 mg IM UD PRN; Protocol PRN Reason: Hypoglycemia Protocol Stop: 03/18/22 03:14 Glucose (Glucose 40% Gel 15 Gm Tube) 15 - 30 gm PO UD PRN; Protocol PRN Reason: Hypoglycemia Protocol Stop: 03/18/22 03:14 Glucose (Glucose 10 Tab/Tube) 4 - 8 tab PO UD PRN; Protocol PRN Reason: Hypoglycemia Protocol Stop: 03/18/22 03:14 Piperacillin Sod/Tazobactam (Sod 4.5 gm/ Dextrose) 120 mls @ 30 mls/hr IV Q8H [facility]; Protocol Stop: 02/23/22 15:59 Last Infusion: 02/18/22 11:39 Dose: Infused Insulin Aspart (Insulin Aspart Per Unit) 0 units SC [facility] Stop: 03/19/22 20:59 Last Admin: 02/18/22 12:29 Dose: Not Given Ketorolac Tromethamine (Ketorolac Tromethamine 15 Mg/Ml Vial) 15 mg IV Q6H PRN PRN Reason: Pain Stop: 02/21/22 02:30 Last Admin: 02/16/22 10:32 Dose: 15 mg Lisinopril (Lisinopril 20 Mg Tab) 20 mg PO HS [facility] Stop: 03/18/22 20:59 Last Admin: 02/17/22 21:11 Dose: 20 mg Miscellaneous (Carbohydrates For Hypoglycemia ) 15 - 30 gm PO UD PRN PRN Reason: Hypoglycemia Treatment Stop: 03/18/22 03:14 Ondansetron HCl (Ondansetron Inj 2 Mg/Ml 2 Ml Vial) 4 mg IV Q6H PRN PRN Reason: Nausea Stop: 03/18/22 02:30 Oxycodone HCl (Oxycodone Hcl Ir 5 Mg Tab (Immediate Release)) 5 mg PO Q4 PRN PRN Reason: Pain Stop: 03/02/22 12:02 Polyethylene Glycol (Polyethylene (Miralax) 17 Gm Pack) 17 gm PO DAILY PRN PRN Reason: Constipation Stop: 03/18/22 02:30
[2022-02-18] MEDS: lisinopril 20 MG TAB PO SCH (21:28)
[2022-02-19] MEDS: PIPERACILLIN/TAZOBACTAM 4.5 GM in DEXTROSE 5% 100 ML IV SCH ×2 (00:56→08:30)
[2022-02-19] MEDS: INSULIN ASPART PER UNIT SC SCH ×2 (08:35→12:20)
[2022-02-19 09:11] LABS: Basophils # (auto) 0.02 K/uL (0-0.2); Basophils % (auto) 0.3 %; Eosinophils # (auto) 0.12 K/uL (0-0.50); Eosinophils % (auto) 1.9 %; Hematocrit (blood only) 39.9 % (40.1-51.0); Hemoglobin 13.5 g/dl (14.0-18.0); Immature Granulocytes # (auto) 0.01 K/uL (0.00-0.02); Immature Granulocytes % (auto) 0.2 %; Lymphocytes # (auto) 1.55 K/uL (1.2-3.4); Lymphocytes % (auto) 24.6 %; Mean Corpuscular Hemoglobin 27.3 pg (25.0-34.0); Mean Corpuscular Hgb Conc 33.8 g/dL (32.0-36.0); Mean Corpuscular Volume 80.6 fL (80.0-100.0); Mean Platelet Volume 9.5 fL (9.4-12.4); Monocytes # (auto) 0.46 K/uL (0.24-0.82); Monocytes % (auto) 7.3 %; Neutrophils # (auto) 4.15 K/uL (1.4-6.5); Neutrophils % (auto) 65.7 %; Platelet Count 393 K/uL (130-400); RDW Standard Deviation 37.6 fL (36.4-46.3); Red Blood Count 4.95 M/uL (4.63-6.08); White Blood Count 6.31 K/ul (4.8-10.8)
[2022-02-19 09:34] LABS: BUN Creatinine Ratio 18.8 (10-20); Calcium 9.2 mg/dl (8.5-10.1); Est GFR (African American) 138.6 ml/min; Est GFR (Non-African American) 119.6 ml/min; Potassium 4.1 mmol/L (3.5-5.1)
--- NOTE | 2022-02-19 14:17 | Communication Note ---
Date of Service: February 19, 2022 Brief recheck today. LUE without erythema. Swelling has gone down per patient. Elbow ROM without pain. Cap refill of fingers < 2 seconds. Markedly improved per patient from when he came in. Plan to follow up with Dr. Mcfadden on a prn basis.
--- NOTE | 2022-02-19 14:26 | Hospitalist Progress Note ---
Date of Service February 19, 2022 Assessment & Plan (1) Cellulitis of left forearm: (2) Olecranon bursitis of left elbow: Plan 41-year-old male, who presented to the ED due to worsening left elbow swelling and pain after falling down on left elbow on rusted objects on 02/11 Left elbow olecranon bursitis and cellulitis and foreign body after falling on the rusted objects- Had tetanus immunization in 08/2019 as per [facility]. Continue empiric zosyn started on admission pending blood culture results. Appreciate Ortho input and recommendation to continue antibiotic intravenously for now Watch for further improvement and then change to oral antibiotic in about 5 days Left upper extremity is even better today with minimal swelling involving the forearm No pain with movement of the elbow joint We will continue IV antibiotic for now and possible discharge tomorrow His left upper extremity is completely asymptomatic and normal We will give oral Keflex for 3 more days to finish the course of antibiotic He can go back to work on Tuesday Will have outpatient PCP appointment within [address] forearm 1. No acute osseous pathology. 2. 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 3. No evidence for an intra-articular effusion. 4. Olecranon bursitis and evidence for cellulitis extending along the dorsum of the forearm. 5. 2, 2 mm metallic foreign bodies along the skin surface of the dorsum of the forearm. xray left elbow 1. No acute osseous pathology. 2. Soft tissue swelling suspicious for olecranon bursitis. Prediabetes. A1c 6.5, SSI with meals. Hold metformin. HTN- continue lisinopril. Obesity- weight loss recommended DVT ppx- SCDs. Ambulation Dispo- Will continue IV antibiotic as per Ortho Discharge home this afternoon Admission and Anticipated Discharge Date Admission Date: February 15, 2022 Subjective 02/17/2022 The patient was seen and examined in medical floor His left upper extremity swelling has improved a lot Denies any pain in the elbow and movement of the elbow joint remains nonpainful 02/18/2022 Patient was seen and examined in medical floor His left upper extremity swelling has decreased and is almost normal Denies any pain No fever and no chills 02/19/2022 The patient was seen and examined in medical floor His left upper extremity in the left forearm is completely normal now No swelling, tenderness and or increased local temperature Movement of the left upper extremity joints are without any pain Discussed with Ortho and he will be discharged home today Review of Systems Review of Systems: All systems reviewed and are unremarkable except as noted below Physical Exam Physical Exam: Lying in bed without any symptoms Constitutional: well developed, well nourished and + obese; not ill appearing Eyes: PERRL, conjunctivae normal, anicteric sclerae ENMT: external ear and nose normal, oropharynx normal Neck: trachea midline, no thyromegaly Respiratory: no respiratory distress Auscultation: + lungs not clear to auscultation Cardiovascular: Rate/Rhythm: regular rate and regular rhythm; not tachycardic Heart Sounds: normal S1 and normal S2; no murmur Extremities: no edema Gastrointestinal (Abdomen): Inspection/Auscultation: normal bowel sounds; abdomen not distended Percussion/Palpation: abdomen soft; abdomen nontender Musculoskeletal: Extremities: extremities normal to inspection Neurologic: normal touch/pain/proprioception and CN's II-XI intact bilaterally Psychiatric: A+Ox3, euthymic affect Lymphatic: no cervical or axillary lymphadenopathy Results & Data Results & Data ([facility]) Vital Signs (Past 12 Hours) Vital Signs Temp Pulse Resp BP Pulse Ox O2 Del Method 02/19/22 07:30 37 C 83 20 125/76 96 Room Air Laboratory Results Short CBC 02/19/22 Range/Units 08:16 WBC 6.31 (4.8-10.8) K/ul Hgb 13.5 L (14.0-18.0) g/dl Hct 39.9 L (40.1-51.0) % Plt Count 393 (130-400) K/uL BMP 02/19/22 08:16 Sodium 135 L Potassium 4.1 Chloride 103 Carbon Dioxide 24 BUN 13 Creatinine 0.69 Glucose 107 H Calcium 9.2 Medications Administered Current Inpatient Medications Acetaminophen (Acetaminophen 325 Mg Tab) 650 mg PO Q4H PRN PRN Reason: pain/fever Stop: 03/18/22 02:30 Last Admin: 02/16/22 21:28 Dose: 650 mg Albuterol (Albuterol Hfa 8 Gm Inhaler) 2 puffs INH Q4H PRN PRN Reason: COUGH/SHORTNESS OF BREATH Stop: 03/18/22 02:30 Dextrose (Dextrose 50% 50 Ml Syringe) 25 - 50 ml IV UD PRN; Protocol PRN Reason: Hypoglycemia Protocol Stop: 03/18/22 03:14 Glucagon (Glucagon For Inj 1 Mg Vial) 1 mg IM UD PRN; Protocol PRN Reason: Hypoglycemia Protocol Stop: 03/18/22 03:14 Glucose (Glucose 40% Gel 15 Gm Tube) 15 - 30 gm PO UD PRN; Protocol PRN Reason: Hypoglycemia Protocol Stop: 03/18/22 03:14 Glucose (Glucose 10 Tab/Tube) 4 - 8 tab PO UD PRN; Protocol PRN Reason: Hypoglycemia Protocol Stop: 03/18/22 03:14 Piperacillin Sod/Tazobactam (Sod 4.5 gm/ Dextrose) 120 mls @ 30 mls/hr IV Q8H [facility]; Protocol Stop: 02/23/22 15:59 Last Infusion: 02/19/22 12:30 Dose: Infused Insulin Aspart (Insulin Aspart Per Unit) 0 units SC ACHS [facility] Stop: 03/19/22 20:59 Last Admin: 02/19/22 12:20 Dose: Not Given Ketorolac Tromethamine (Ketorolac Tromethamine 15 Mg/Ml Vial) 15 mg IV Q6H PRN PRN Reason: Pain Stop: 02/21/22 02:30 Last Admin: 02/16/22 10:32 Dose: 15 mg Lisinopril (Lisinopril 20 Mg Tab) 20 mg PO HS GILBERT Stop: 03/18/22 20:59 Last Admin: 02/18/22 21:28 Dose: 20 mg Miscellaneous (Carbohydrates For Hypoglycemia ) 15 - 30 gm PO UD PRN PRN Reason: Hypoglycemia Treatment Stop: 03/18/22 03:14 Ondansetron HCl (Ondansetron Inj 2 Mg/Ml 2 Ml Vial) 4 mg IV Q6H PRN PRN Reason: Nausea Stop: 03/18/22 02:30 Oxycodone HCl (Oxycodone Hcl Ir 5 Mg Tab (Immediate Release)) 5 mg PO Q4 PRN PRN Reason: Pain Stop: 03/02/22 12:02 Polyethylene Glycol (Polyethylene (Miralax) 17 Gm Pack) 17 gm PO DAILY PRN PRN Reason: Constipation Stop: 03/18/22 02:30
[2022-02-19] MEDS ORDERED: cephALEXin 250 MG CAP PO STA (14:30)
--- NOTE | 2022-02-19 18:33 | Discharge Summary ---
Date of Service February 19, 2022 Admission HPI Per Admitting Provider DICTATED BY:Hai Marquis MD DATE OF ADMISSION: 02/15/2022. CHIEF COMPLAINT: Left olecranon bursitis and cellulitis. HISTORY OF PRESENT ILLNESS: This 41-year-old male with past medical history significant for prediabetes, hypertension, morbid obesity comes because of left elbow infection. The patient says last , he fell on the left elbow on rusted objects. There was a foreign body, which he took it off and by the weekend,elbow got swollen up and he went to [place] imaging studies showed some foreign body and thought there could be some fracture and sent to the [facility] ER. In the ER, CAT scan was done and it showed olecranon bursitis and cellulitis and two 2-mm metallic foreign bodies along the skin surface on the dorsum of the forearm. The patient was given IV dapto and Keflex in the ER, and given pain medication. Currently, says still there is some pain and he has painful movements at the left elbow.He is afebrile, hemodynamically stable. Denies any headache, no dizziness, no blurred visions, no earache, no runny nose, no sore throat, no cough, no chest pain, no shortness of breath, no nausea, no abdominal pain. Normal bowel and bladder movements. Admission Exam Per Admitting Provider GENERAL: The patient is obese, not in acute distress. VITAL SIGNS: Temperature 36.3, pulse 97, respiratory rate 20, blood pressure 138/95, oxygen 97% on room air. HEENT: Pupils equal, round and reactive to light. Oral mucosa moist. NECK: No JVD. No neck masses seen. CARDIOVASCULAR: S1 and S2 heard. Regular rate and rhythm. No murmur, no gallop. RESPIRATORY SYSTEM: Normal AP diameter. No accessory muscle use. No wheezing, no crackles. ABDOMEN: Soft, bowel sounds present, nontender, no distention. CENTRAL NERVOUS SYSTEM: Cranial nerves II through XII are grossly intact, nonfocal. EXTREMITIES: Left elbow is swollen, had painful movements. No lower extremity edema present. Principal Diagnosis Cellulitis left elbow and forearm-resolved Discharge Exam Lying in bed without any symptoms Constitutional well developed, well nourished and + obese; not ill appearing Eyes PERRL, conjunctivae normal, anicteric sclerae ENMT external ear and nose normal, oropharynx normal Neck trachea midline, no thyromegaly Respiratory no respiratory distress Auscultation: + lungs not clear to auscultation Cardiovascular Rate/Rhythm: regular rate and regular rhythm; not tachycardic Heart Sounds: normal S1 and normal S2; no murmur Extremities: no edema Gastrointestinal (Abdomen) Inspection/Auscultation: normal bowel sounds; abdomen not distended Percussion/Palpation: abdomen soft; abdomen nontender Musculoskeletal Extremities: extremities normal to inspection Neurologic normal touch/pain/proprioception and CN's II-XI intact bilaterally Psychiatric A+Ox3, euthymic affect Lymphatic no cervical or axillary lymphadenopathy Discharge Data Allergies Allergy/AdvReac Type Severity Reaction Status Date / Time No Known Allergies Allergy Verified 02/15/22 20:55 Consultations 02/15/22 21:02 ED Decision to Admit Stat 02/16/22 08:00 Consult Orthopedic Surgery Routine Ordered Studies 02/15/22 19:32 CT forearm LT w con Stat Diabetes Follow up Diabetes Follow-up Needed for Newly Diagnosed Diabetes Hospital Course (1) Cellulitis of left forearm: (2) Olecranon bursitis of left elbow: Plan 41-year-old male, who presented to the ED due to worsening left elbow swelling and pain after falling down on left elbow on rusted objects on 02/11 Left elbow olecranon bursitis and cellulitis and foreign body after falling on the rusted objects- Had tetanus immunization in 08/2019 as per [facility]. Continue empiric zosyn started on admission pending blood culture results. Appreciate Ortho input and recommendation to continue antibiotic intravenously for now Watch for further improvement and then change to oral antibiotic in about 5 days Left upper extremity is even better today with minimal swelling involving the forearm No pain with movement of the elbow joint We will continue IV antibiotic for now and possible discharge tomorrow His left upper extremity is completely asymptomatic and normal We will give oral Keflex for 3 more days to finish the course of antibiotic He can go back to work on Tuesday Will have outpatient PCP appointment within [address] forearm 1. No acute osseous pathology. 2. 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 3. No evidence for an intra-articular effusion. 4. Olecranon bursitis and evidence for cellulitis extending along the dorsum of the forearm. 5. 2, 2 mm metallic foreign bodies along the skin surface of the dorsum of the forearm. xray left elbow 1. No acute osseous pathology. 2. Soft tissue swelling suspicious for olecranon bursitis. Prediabetes. A1c 6.5, SSI with meals. Hold metformin. HTN- continue lisinopril. Obesity- weight loss recommended DVT ppx- SCDs. Ambulation Dispo- Will continue IV antibiotic as per Ortho Discharge home this afternoon Total Time Total Time Spent Total Time Spent (In Minutes): 35 minutes Discharge Plan Discharge Items Patient Disposition: Home - Self-Care Reason For Visit: HURT L ELBOW AT WORK. WC Discharge Diagnosis: Cellulitis left elbow and forearm-resolved Condition on Discharge: Good Activity: Resume your previous activity Non-emergency contact: Primary Care Provider Call non-emergency contact if: you have any medication questions and your symptoms worsen Follow-up/Referrals: Bindu Johnson PA-C [Primary Care Provider] - (Date & Time 02/24/2022 9:00 AM Provider Bindu Johnson PA-C Department [facility] ) Diet: Regular Addtl Attending Provider Instructions: Please take precautions to avoid fall Finish the course of antibiotic as advised Please give appointment with your healthcare provider If your elbow pain or forearm pain is worse he can have an outpatient follow-up with orthopedic surgeon-Dr. Mcfadden Pending Studies at Discharge: No Stand-Alone Forms: [employer] Work/School Release, Smoking Cessation Medications and DC Order Prescriptions: New cephalexin 250 mg capsule 500 mg PO TID 3 Days Qty: 18 0RF Continued metformin 500 mg tablet 500 mg PO HS albuterol sulfate 90 mcg/actuation HFA aerosol inhaler 2 puff INHALATION Q4H PRN (Reason: COUGH/SHORTNESS OF BREATH) lisinopril 20 mg tablet 20 mg PO HS Discharge Orders: Discharge Order (Routine); Ordered 02/19/22 Ordered By: Raf Rueda/Other Patient Handouts: Exercise: Why Fitness Matters, Diabetes: Meal Planning, Type 2 Diabetes Admission Data Admit Date/Time: 02/15/22 22:23 Attending Provider: Raf Galeas Admit Provider: Hai Marquis Primary Care Provider: Simco,Bindu J. Other Providers: Hai Marquis ; Anup Cancino ; Chong Bernard Other Interventions: Discharge Summary Assessment (RN) Last Done: 02/19/22 14:32
== END 2022-02-19 15:57 | disposition home or self-care (01) | DRG 603 ==
LOC: ED 17:01 → 3W 22:23 → SUATTDRO 22:23 → 3W 02-16 01:54
DX: M70.22 Olecranon bursitis, left elbow; W19.XXXA Unspecified fall, initial encounter; Z79.899 Other long term (current) drug therapy; R73.9 Hyperglycemia, unspecified; Y99.0 Civilian activity done for income or pay; R73.03 Prediabetes; Z68.42 Body mass index [BMI] 45.0-49.9, adult; Z79.84 Long term (current) use of oral hypoglycemic drugs; I10 Essential (primary) hypertension; L03.114 Cellulitis of left upper limb; S50.852A Superficial foreign body of left forearm, initial encounter; Z20.822 Contact with and (suspected) exposure to COVID-19; E66.01 Morbid (severe) obesity due to excess calories

== ENCOUNTER 2022-11-18 10:35 | Observation (INO) ==
--- NOTE | 2022-11-18 10:50 | Emergency Department Note ---
History of Present Illness General Chief complaint: Chest Pain Stated complaint: CHEST PAINS, Time Seen by Provider: 11/18/22 10:47 History of Present Illness Maximum Pain Intensity: 5 This 42-year-old male patient presents to the emergency department for evaluation of chest pain that started at 9 AM this morning. The patient states that he started with left-sided stabbing chest pain at 9 AM this morning while at work. He states that the pain lasted for about 10-15 minutes and then the sharp pain resolved. However, he continued to have constant pressure on the left side of his chest in between the more severe episodes. Has had 3 episodes of similar severe pain since 9 AM. The severe sharp pain radiates to his back when he gets it. Continues with the constant dull pressure in his chest. Denies any abdominal pain or vomiting. However, he gets very sweaty and sometimes nauseous when he gets the severe pain. Denies any personal history of heart problems, but does have an extensive family history of heart problems. His paternal grandfather and 3 paternal uncles all of heart attacks at a young age. He takes lisinopril for high blood pressure, but not on any other medications. Not on any blood thinners. Denies taking any erectile dysfunction medication. Rates his discomfort as 5/10. Does not take any aspirin. The patient denies recent long car or plane rides or recent injury/trauma/surgery. Denies any personal or family history of blood clots or bleeding disorders. Denies any hormonal medication use. Denies any hemoptysis or calf pain. Home Medications Medication Instructions Recorded Confirmed Type lisinopril 20 mg tablet 20 mg PO HS 02/16/21 11/18/22 History albuterol sulfate 90 mcg/actuation 2 puff inhalation Q4H PRN 02/15/22 11/18/22 History aerosol inhaler COUGH/SHORTNESS OF BREATH metformin 500 mg tablet 500 mg PO BID 02/15/22 11/18/22 History Allergies Allergy/AdvReac Type Severity Reaction Status Date / Time No Known Allergies Allergy Verified 02/15/22 20:55 Past Med/Surg History Medical History DM type 2 (diabetes mellitus, type 2) Hypertension Surgical History Hx of appendectomy Family History Uncle Heart disease Uncle Heart disease Grandfather (Paternal) Heart disease Social History Smoking Status: Never smoker Second Hand Exposure: No; Do You Dip or Chew Tobacco: No; Tobacco Cessation Education Requested by Patient: No Hx Alcohol Use: No Hx Substance Use: Yes Prescribed Medications: Marijuana Preferred Language: Yakut Communication Ability: Effective Block Splitter Operator Required: No Beliefs That Will Affect Care: None marital status: Current Living Situation: Spouse Current Living Situation Comment: and four kids How many Children do You have: 4 Other Information That Helps Us Care for You: No Feels Safe at Home: Yes Safety Concerns: Feels Safe At This Time Assistive Devices: None Review of Systems See HPI for pertinent positives & negatives. Physical Exam Vital Signs Vital Signs - 24 hr 11/18/22 10:36 11/18/22 10:56 11/18/22 11:05 Temperature 36.3 C L Temperature Source Temporal Artery Scan Pulse Rate 109 H 113 H 110 H Respiratory Rate 20 22 Blood Pressure 138/76 107/74 Blood Pressure Mean 96 85 Pulse Oximetry 97 93 Oxygen Delivery Method Room Air Room Air Sepsis New/Unexplained Change in Mental Status No Sepsis Action Taken by Nursing No Action Required 11/18/22 11:30 11/18/22 12:10 11/18/22 12:31 Temperature Temperature Source Pulse Rate 99 H 92 H 93 H Respiratory Rate 18 14 20 Blood Pressure 119/82 131/102 H 141/86 H Blood Pressure Mean 94 111 104 Pulse Oximetry 96 97 98 Oxygen Delivery Method Room Air Room Air Room Air Sepsis New/Unexplained Change in Mental Status Sepsis Action Taken by Nursing VITALS: Vitals are noted on the nurse's note and reviewed by myself. GENERAL: On initial exam the patient was having a severe episode of pain and was pacing around the room and hunching over the bed pointing to his sternum and left side of his chest into the left upper back. He was diaphoretic and tachycardic during this episode. Nontoxic in appearance. SKIN: Capillary refill <2 sec. EYES: PERRLA. EOMI. Conjunctivae without injection, sclerae without icterus. NOSE: Patent without discharge. MOUTH: Mucous membranes moist. Uvula midline. Airway patent. NECK: Supple without nuchal rigidity. HEART: Regular rate and rhythm without murmurs gallops or rubs. LUNGS: Clear to auscultation bilaterally without wheezes, rales or rhonchi. No retractions or accessory muscle use. ABDOMEN: Positive bowel sounds x 4. Normal tympanic percussion. Soft, nontender, without masses or organomegaly. Lorenzo sign negative. No guarding or rebound tenderness. No focal RLQ or LLQ tenderness. MUSCULOSKELETAL: No gross musculoskeletal defects. No calf tenderness. Negative Homans' sign. Peripheral pulses 2+ and equal. NEURO: Patient was alert and oriented to person place and time. No focal neurological deficits. Course Administered Medications Insulin Aspart (Insulin Aspart Per Unit Charge) 0 units SC ACHS GILBERT Stop: 12/18/22 16:29 Last Admin: 11/18/22 17:06 Dose: Not Given Documented By: ROYCE Metoprolol Tartrate (Metoprolol Tartrate 25 Mg Tab) 25 mg PO BID GILBERT Stop: 12/18/22 13:54 Last Admin: 11/18/22 15:22 Dose: 25 mg Documented By: ROYCE Discontinued Medications Aspirin (Aspirin Chew 324 Mg) 324 mg PO NOW STA Stop: 11/18/22 10:56 Last Admin: 11/18/22 11:12 Dose: 324 mg Documented By: ALICIA Sodium Chloride (Nss) 500 mls @ 999 mls/hr IV .Q31M STA Stop: 11/18/22 11:25 Last Infusion: 11/18/22 11:44 Dose: 0 mls/hr Documented By: Admin: 11/18/22 11:12 Dose: 999 mls/hr Documented By: ALICIA Ioversol (Optiray 320 500ml) 120 ml IV ONCE ONE Stop: 11/18/22 11:59 Last Admin: 11/18/22 11:58 Dose: 120 ml Documented By: TEREAS Nitroglycerin (Nitroglycerin Sl 0.4 Mg/Tab Tab) Confirm Administered Dose 0.4 mg .ROUTE .STK-MED ONE Stop: 11/18/22 10:55 Last Admin: 11/18/22 11:02 Dose: Not Given Documented By: SHON Nitroglycerin (Nitroglycerin Sl 0.4 Mg/Tab Tab) 0.4 mg SL UD ONE Stop: 11/18/22 11:01 Last Admin: 11/18/22 11:01 Dose: 0.4 mg Documented By: SHON Ondansetron HCl (Ondansetron Inj 2 Mg/Ml 2 Ml Vial) 4 mg IV NOW STA Stop: 11/18/22 10:56 Last Admin: 11/18/22 11:12 Dose: 4 mg Documented By: [facility] Medical Decision Making Differential Diagnosis Differential diagnosis includes angina, ID, pericarditis, myocarditis, aortic dissection, pleurisy, pneumothorax, PE, pneumonia, pneumomediastinum, esophagitis, esophageal spasm, GERD, perforated esophagus, perforated duodenal/gastric ulcer, pancreatitis, cholecystitis, costochondritis, musculoskeletal, bronchitis, URI, or others. Laboratory Data Attestation: I reviewed the patient's lab results. 11/18/22 11:00 Lab Results 11/18/22 11/18/22 11/18/22 Range/Units 11:00 11:00 11:11 WBC 9.22 (4.8-10.8) K/ul RBC 5.27 (4.70-6.10) M/uL Hgb 14.4 (14.0-18.0) g/dl POC Hgb 14.6 (14.0-18.0) g/dl Hct 41.7 L (42.0-52.0) % POC Hct 43 (42-52) % MCV 79.1 L (80.0-100.0) fL MCH 27.3 (25.0-34.0) pg MCHC 34.5 (32.0-36.0) g/dL RDW Std Deviation 37.6 (36.4-46.3) fL RDW Coeff of Felton 13.2 (11.5-14.5) % Plt Count 353 (130-400) K/uL MPV 9.6 (9.4-12.4) fL Immature Gran % (Auto) 0.3 % Neut % (Auto) 63.9 % Lymph % (Auto) 26.8 % Floyd % (Auto) 7.6 % Eos % (Auto) 1.1 % Baso % (Auto) 0.3 % Neut # (Auto) 5.89 (1.40-6.50) K/uL Lymph # (Auto) 2.47 (1.2-3.4) K/uL Floyd # (Auto) 0.70 H (0.11-0.59) K/uL Eos # (Auto) 0.10 (0-0.50) K/uL Baso # (Auto) 0.03 (0-0.2) K/uL Immature Gran # (Auto) 0.03 (0.01-0.20) K/uL PT (9.0-12.0) Seconds INR (0.9-1.1) APTT (21.0-31.0) Seconds PTT Ratio POC Sodium 140 (135-144) mmol/L POC Potassium 4.0 (3.3-5.0) mmol/L POC Chloride 105 (101-112) mmol/L POC Total CO2 23 L (24-31) mmol/L POC Anion Gap 17.0 (16-25) mmol/L POC BUN 25 H (7-18) mg/dl POC Creatinine 0.7 (0.6-1.3) mg/dl POC Glucose (other) 124 H (70-99) mg/dl POC Ioniz Calcium Aline 1.14 (1.12-1.32) mmol/l Total Bilirubin 0.5 (0.2-1.0) mg/dl Direct Bilirubin 0.1 (0-0.2) mg/dl AST 23 (13-39) U/L ALT 24 (7-52) U/L Alkaline Phosphatase 72 (34-104) U/L Troponin I High Sens 5.5 (0-20) pg/ml Total Protein 8.6 H (6.0-8.3) gm/dl Albumin 4.4 (3.4-5.0) gm/dl Lipase 16 (11-82) U/L SARS-CoV-2, RNA, NAAT (NEGATIVE) 11/18/22 11/18/22 Range/Units 12:09 12:35 WBC (4.8-10.8) K/ul RBC (4.70-6.10) M/uL Hgb (14.0-18.0) g/dl POC Hgb (14.0-18.0) g/dl Hct (42.0-52.0) % POC Hct (42-52) % MCV (80.0-100.0) fL MCH (25.0-34.0) pg MCHC (32.0-36.0) g/dL RDW Std Deviation (36.4-46.3) fL RDW Coeff of Felton (11.5-14.5) % Plt Count (130-400) K/uL MPV (9.4-12.4) fL Immature Gran % (Auto) % Neut % (Auto) % Lymph % (Auto) % Floyd % (Auto) % Eos % (Auto) % Baso % (Auto) % Neut # (Auto) (1.40-6.50) K/uL Lymph # (Auto) (1.2-3.4) K/uL Floyd # (Auto) (0.11-0.59) K/uL Eos # (Auto) (0-0.50) K/uL Baso # (Auto) (0-0.2) K/uL Immature Gran # (Auto) (0.01-0.20) K/uL PT 11.3 (9.0-12.0) Seconds INR 1.0 (0.9-1.1) APTT 26.4 (21.0-31.0) Seconds PTT Ratio 0.9 POC Sodium (135-144) mmol/L POC Potassium (3.3-5.0) mmol/L POC Chloride (101-112) mmol/L POC Total CO2 (24-31) mmol/L POC Anion Gap (16-25) mmol/L POC BUN (7-18) mg/dl POC Creatinine (0.6-1.3) mg/dl POC Glucose (other) (70-99) mg/dl POC Ioniz Calcium Aline (1.12-1.32) mmol/l Total Bilirubin (0.2-1.0) mg/dl Direct Bilirubin (0-0.2) mg/dl AST (13-39) U/L ALT (7-52) U/L Alkaline Phosphatase (34-104) U/L Troponin I High Sens (0-20) pg/ml Total Protein (6.0-8.3) gm/dl Albumin (3.4-5.0) gm/dl Lipase (11-82) U/L SARS-CoV-2, RNA, NAAT NEGATIVE (NEGATIVE) Imaging Data Radiologist's Impression: Chest CTA 11/18/22 10:55 CT ANGIOGRAM OF THE CHEST COMBO CLINICAL HISTORY: Atypical chest pain. Thoracic back pain. COMPARISON STUDY: Chest x-ray dated 02/16/2021. TECHNIQUE: Before and following the IV administration of 120 cc of Optiray 320, CT angiogram of the chest was performed from the thoracic inlet to the upper abdomen utilizing the dissection protocol. Images are reviewed in the axial, sagittal, and coronal planes. 3-D MIPS images are created and assessed. IV contrast was administered without complication. A dose lowering technique was utilized adhering to the principles of ALARA. The examination is degraded by str eak artifact from the right arm which could not be elevated above the chest. CT DOSE: 1495.19 mGycm FINDINGS: Thyroid: Imaged portions of the thyroid gland are normal in size and attenuation. Thoracic aorta: No intramural hematoma is seen only on the enhanced series. The thoracic aorta is normal in caliber and demonstrates 4-vessel variant arch anatomy. The left vertebral artery arises directly from the thoracic aorta. No dissection is seen. The arch vessels are widely patent. Pulmonary vasculature: The pulmonary trunk is normal in caliber. There are no filling defects identified in the central pulmonary vessels to suggest pulmonary embolus. Note that this examination was not protocoled to assess for pulmonary emboli. Heart: The heart is normal in size and without pericardial effusion. There is age advanced atherosclerotic calcification of the coronary arteries. Lungs and pleural spaces: There is no airspace consolidation or pleural effusion. A 3 mm left apical nodule is seen on image #60. Minimal secretions are noted in the trachea. Mediastinum: There is no mediastinal lymphadenopathy. Kailyn: Clear. Axillae: There is no axillary lymphadenopathy. Upper abdomen: A small hiatal hernia is noted. The liver is enlarged and steatotic. A 1.9 cm left adrenal nodule meets CT criteria for a fat-containing adenoma. Skeletal structures: No lytic or blastic bony lesions are seen. IMPRESSION: 1. Unremarkable CT angiogram of the thoracic aorta. 2. There is no airspace consolidation or pleural effusion. 3. Age advanced coronary artery calcification. Consider follow up with cardiology. 4. Hepatic steatosis. 5. There is a 3 mm left apical pulmonary nodule. If warranted this can be followed as per the Fleischner criteria. See below. 6. Additional findings as above. Please refer to below summary of Fleischner criteria recommendations for follow- up of incidental CT nodules (Nikki Rangel, Guidelines for management of small pulmonary nodules detected on CT scans: A statement from the Fleischner Society, Radiology 237: [phone].) SOLID NODULES Solitary nodule size: <6 mm * low risk patients: no follow-up needed * high risk patients: optional CT at 12 months Solitary nodule size: 6-8 mm * low risk patients: follow-up at 6-12 months, then consider further follow-up at 18-24 months * high risk patients: initial follow-up CT at 6-12 months and then at 18-24 months if no change Solitary nodule size: >8 mm * either low or high risk patients - consider follow-up CT at 3 months, and/or CT-PET, and/or biopsy Multiple nodules size: <6 mm * low risk patients: no routine follow-up * high risk patients: optional CT at 12 months Multiple nodules size: 6-8 mm * low risk patients: follow-up at 3-6 months, then consider further follow-up at 18-24 months * high risk patients: follow-up at 3-6 months, then at 18-24 months if no change Multiple nodules size: >8 mm * low risk patients: follow-up at 3-6 months, then consider further follow-up at 18-24 months * high risk patients: follow-up at 3-6 months, then at 18-24 months if no change Note: newly detected indeterminate nodule in persons 35 years of age or older. * low risk patients: minimal or absent history of smoking and/or other known risk factors * high risk patients: history of smoking or of other known risk factors (e.g. first degree relative with lung cancer, or exposure to asbestos, radon, uranium) * if a nodule up to 8 mm is partly solid or is ground glass further follow-up is required after 24 months to exclude possible slow growing adenocarcinoma (KALI) SUBSOLID NODULES Solitary pure ground-glass nodule * nodule size <6 mm - no CT follow-up required * nodule size >=6 mm - follow-up CT at 6-12 months, then every 2 years until 5 years Solitary part-solid nodule * nodule size <6 mm - no CT follow-up required * nodule size >=6 mm - follow-up CT at 3-6 months. If unchanged, and solid component remains <6 mm, then annual follow-up for 5 years Multiple subsolid nodules * nodule size <6 mm - follow-up CT at 3-6 months, consider further follow-up at 2 and 4 years if stable * nodule size >=6 mm - follow-up CT at 3-6 months, subsequent management based on the most suspicious nodule(s) ACT 112: Negative or not required by law. Electronically signed by: Vitaly Lozano M.D. 11/18/2022 12:29 PM MDM Narrative I examined the patient. On initial exam the patient was having a severe episode of pain and was pacing around the room and hunching over the bed pointing to his sternum and left side of his chest into the left upper back. He was diaphoretic and tachycardic during this episode. The episode lasted for approximately 3 to 5 minutes while I was in the room and then the severe pain resolved. He continued to have the chest pressure however. The patient was able to lay back in the bed after the severe episode of pain and an IV lock was placed and labs are drawn. Continuous residential monitor: Order was placed for continuous residential monitor. Patient was placed on the residential monitor and continuous pulse ox. Patient was noted to be in sinus tachycardia at an initial rate of 117 bpm per my interpretation. EKG was interpreted by myself and shows sinus tachycardia at 105 bpm with no acute ST or T wave changes. The patient was given aspirin 324 mg p.o. chewed. He was given nitroglycerin 0.4 mg sublingual with complete resolution of the chest pressure. He was given normal saline solution 500 mL bolus. Due to the episodes of severe pain radiating to his back, there was concern for possible aortic dissection. I-STAT labs were obtained and the patient was taken to CT scan. CTA of the chest with contrast and dissection protocol was reviewed by myself and read by radiology as above. It showed no abnormalities of the aorta and no evidence for aortic dissection. No airspace consolidation or pleural effusion. No evidence for PE in the central pulmonary vessels. It did show aged advanced coronary artery calcification as well as hepatic steatosis. There was also a 3 mm left apical pulmonary nodule. CBC without evidence for anemia or leukocytosis. Coags were normal. I-STAT BMP with BUN of 25 and glucose of 124, but otherwise essentially unremarkable. LFTs and lipase were normal. COVID was negative. Troponin was normal. Repeat troponin still pending. The patient presented with chest pain that started at 9 AM this morning. The pain was substernal and left-sided and radiated into his back. CT scan did not show evidence for dissection or other acute abnormality, but did show advanced coronary artery calcification. The patient's chest pain completely resolved after sublingual nitro. His paternal grandfather and 3 paternal uncles all of heart attacks at a young age. The patient has cardiac risk factors including hypertension, diabetes, and obesity. The patient will require admission for further cardiac work-up. I spoke with the on-call hospitalist who agreed to admit the patient for further evaluation and treatment. Please refer to their dictation for further details. The patient was admitted in stable condition. Impression & Plan Chest pain Discharge Plan Visit Data Chief Complaint: Chest Pain Stated Complaint: CHEST PAINS, ED Provider: Regino Michael ED Midlevel Provider: Orly Hector Discharge Problem: Chest pain Patient Disposition: Admitted As Inpatient Condition: Good Discharge Instructions Interventions: ED Discharge Assessment Last Done: 11/18/22 13:54 Chest pain Qualifiers: Chest pain type: unspecified Qualified Code(s): R07.9 - Chest pain, unspecified
[2022-11-18] MEDS ORDERED: NITROGLYCERIN SL 0.4 MG/TAB TAB ONE (10:54)
[2022-11-18] MEDS ORDERED: ONDANSETRON INJ 2 MG/ML 2 ML VIAL IV STA (10:55)
[2022-11-18] MEDS ORDERED: ASPIRIN CHEW 324 MG PO STA (10:55)
[2022-11-18] MEDS ORDERED: SODIUM CHLORIDE 0.9% 500 ML IV STA (10:55)
[2022-11-18] MEDS ORDERED: NITROGLYCERIN SL 0.4 MG/TAB TAB SL ONE (11:00)
[2022-11-18 11:32] LABS: iSTAT Creatinine 0.7 mg/dl (0.6-1.3); iSTAT Hemoglobin 14.6 g/dl (14.0-18.0); iSTAT Ionized Calcium 1.14 mmol/l (1.12-1.32)
[2022-11-18 11:57] LABS: Basophils # (auto) 0.03 K/uL (0-0.2); Basophils % (auto) 0.3 %; Eosinophils % (auto) 1.1 %; Hematocrit (blood only) 41.7 % (42.0-52.0); Hemoglobin 14.4 g/dl (14.0-18.0); Immature Granulocytes # (auto) 0.03 K/uL (0.01-0.20); Immature Granulocytes % (auto) 0.3 %; Lymphocytes # (auto) 2.47 K/uL (1.2-3.4); Lymphocytes % (auto) 26.8 %; Mean Corpuscular Hemoglobin 27.3 pg (25.0-34.0); Mean Corpuscular Hgb Conc 34.5 g/dL (32.0-36.0); Mean Corpuscular Volume 79.1 fL (80.0-100.0); Mean Platelet Volume 9.6 fL (9.4-12.4); Monocytes % (auto) 7.6 %; Neutrophils # (auto) 5.89 K/uL (1.40-6.50); Neutrophils % (auto) 63.9 %; Platelet Count 353 K/uL (130-400); RDW Coefficient of Variation 13.2 % (11.5-14.5); RDW Standard Deviation 37.6 fL (36.4-46.3); Red Blood Count 5.27 M/uL (4.70-6.10); White Blood Count 9.22 K/ul (4.8-10.8)
[2022-11-18] MEDS ORDERED: OPTIRAY 320 500ml IV ONE (11:58)
[2022-11-18 12:11] LABS: Albumin Level 4.4 gm/dl (3.4-5.0); Bilirubin Direct 0.1 mg/dl (0-0.2); Bilirubin,Total 0.5 mg/dl (0.2-1.0); Total Protein 8.6 gm/dl (6.0-8.3)
[2022-11-18 12:17] LABS: Troponin I High Sensitivity 5.5 pg/ml (0-20)
--- NOTE | 2022-11-18 12:30 | CT Scan Report ---
CT ANGIOGRAM OF THE CHEST COMBO CLINICAL HISTORY: Atypical chest pain. Thoracic back pain. COMPARISON STUDY: Chest x-ray dated 02/16/2021. TECHNIQUE: Before and following the IV administration of 120 cc of Optiray 320, CT angiogram of the c hest was performed from the thoracic inlet to the upper abdomen utilizing the dissection protocol. Im ages are reviewed in the axial, sagittal, and coronal planes. 3-D MIPS images are created and assesse d. IV contrast was administered without complication. A dose lowering technique was utilized adherin g to the principles of ALARA. The examination is degraded by streak artifact from the right arm which could not be elevated above the chest. CT DOSE: 1495.19 mGycm FINDINGS: Thyroid: Imaged portions of the thyroid gland are normal in size and attenuation. Thoracic aorta: No intramural hematoma is seen only on the enhanced series. The thoracic aorta is nor mal in caliber and demonstrates 4-vessel variant arch anatomy. The left vertebral artery arises direc tly from the thoracic aorta. No dissection is seen. The arch vessels are widely patent. Pulmonary vasculature: The pulmonary trunk is normal in caliber. There are no filling defects identif ied in the central pulmonary vessels to suggest pulmonary embolus. Note that this examination was not protocoled to assess for pulmonary emboli. Heart: The heart is normal in size and without pericardial effusion. There is age advanced atheroscle rotic calcification of the coronary arteries. Lungs and pleural spaces: There is no airspace consolidation or pleural effusion. A 3 mm left apical nodule is seen on image #60. Minimal secretions are noted in the trachea. Mediastinum: There is no mediastinal lymphadenopathy. Kailyn: Clear. Axillae: There is no axillary lymphadenopathy. Upper abdomen: A small hiatal hernia is noted. The liver is enlarged and steatotic. A 1.9 cm left adr enal nodule meets CT criteria for a fat-containing adenoma. Skeletal structures: No lytic or blastic bony lesions are seen. IMPRESSION: 1. Unremarkable CT angiogram of the thoracic aorta. 2. There is no airspace consolidation or pleural effusion. 3. Age advanced coronary artery calcification. Consider follow up with cardiology. 4. Hepatic steatosis. 5. There is a 3 mm left apical pulmonary nodule. If warranted this can be followed as per the Fleisch ner criteria. See below. 6. Additional findings as above. Please refer to below summary of Fleischner criteria recommendations for follow-up of incidental CT n odules (Nikki Rangel, Guidelines for management of small pulmonary nodules detected on CT scans: A sta tement from the Fleischner Society, Radiology 237: [phone].) SOLID NODULES Solitary nodule size: <6 mm * low risk patients: no follow-up needed * high risk patients: optional CT at 12 months Solitary nodule size: 6-8 mm * low risk patients: follow-up at 6-12 months, then consider further follow-up at 18-24 months * high risk patients: initial follow-up CT at 6-12 months and then at 18-24 months if no change Solitary nodule size: >8 mm * either low or high risk patients - consider follow-up CT at 3 months, and/or CT-PET, and/or biopsy Multiple nodules size: <6 mm * low risk patients: no routine follow-up * high risk patients: optional CT at 12 months Multiple nodules size: 6-8 mm * low risk patients: follow-up at 3-6 months, then consider further follow-up at 18-24 months * high risk patients: follow-up at 3-6 months, then at 18-24 months if no change Multiple nodules size: >8 mm * low risk patients: follow-up at 3-6 months, then consider further follow-up at 18-24 months * high risk patients: follow-up at 3-6 months, then at 18-24 months if no change Note: newly detected indeterminate nodule in persons 35 years of age or older. * low risk patients: minimal or absent history of smoking and/or other known risk factors * high risk patients: history of smoking or of other known risk factors (e.g. first degree relative with lung cancer, or exposure to asbestos, radon, uranium) * if a nodule up to 8 mm is partly solid or is ground glass further follow-up is required after 24 m onths to exclude possible slow growing adenocarcinoma (KALI) SUBSOLID NODULES Solitary pure ground-glass nodule * nodule size <6 mm - no CT follow-up required * nodule size >=6 mm - follow-up CT at 6-12 months, then every 2 years until 5 years Solitary part-solid nodule * nodule size <6 mm - no CT follow-up required * nodule size >=6 mm - follow-up CT at 3-6 months. If unchanged, and solid component remains <6 mm, then annual follow-up for 5 years Multiple subsolid nodules * nodule size <6 mm - follow-up CT at 3-6 months, consider further follow-up at 2 and 4 years if sta ble * nodule size >=6 mm - follow-up CT at 3-6 months, subsequent management based on the most suspiciou s nodule(s) ACT 112: Negative or not required by law. Electronically signed by: Vitaly Lozano M.D. 11/18/2022 12:29 PM
[2022-11-18 14:08] LABS: Partial Thromboplastin Ratio 0.9; Partial Thromboplastin Time 26.4 Seconds (21.0-31.0); Prothrombin Time 11.3 Seconds (9.0-12.0)
[2022-11-18] MEDS ORDERED: GLUCOSE 10 TAB/TUBE PO PRN (14:31)
[2022-11-18] MEDS ORDERED: DEXTROSE 50% 50 ML SYRINGE IV PRN (14:31)
[2022-11-18] MEDS ORDERED: GLUCOSE 40% GEL 15 GM TUBE PO PRN (14:31)
[2022-11-18] MEDS ORDERED: GLUCAGON FOR INJ 1 MG VIAL SQ PRN (14:31)
[2022-11-18] MEDS ORDERED: CARBOHYDRATES FOR HYPOGLYCEMIA PO PRN (14:31)
[2022-11-18] MEDS ORDERED: ACETAMINOPHEN 325 MG TAB PO PRN (14:31)
[2022-11-18] MEDS ORDERED: NITROGLYCERIN SL 0.4 MG/TAB TAB SL PRN (14:31)
[2022-11-18] MEDS: METOPROLOL TARTRATE 25 MG TAB PO SCH ×2 (15:22→20:49)
--- NOTE | 2022-11-18 16:10 | Cardiology Consultation ---
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 Episode strongly suggestive of new onset angina without overt other cause. Initial troponin and EKGs without acute injury. Echocardiogram pending Aspirin administered in ER We will begin beta-martha Anticoagulate with any rise in troponin or recurrence of symptoms Keep n.p.o. after midnight for further evaluation with likely proceeding to diagnostic cardiac catheterization unless other findings develop History of Present Illness Reason for Consultation: Chest pain Requesting Physician: Dr. Pearson Attending Physician: Taz Pearson MD History of Present Illness Patient is a 42-year-old male without prior history of cardiac disease with underlying medical issues and concerns which include 1. Morbid obesity 2. Hypertension 3. Type 2 diabetes mellitus 4. 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 Usual good tolerance of exercise and activities. This morning while working at second job at moderate level workloads developed sudden onset severe chest pressure rating to the shoulder and arm with associated diaphoresis nausea. Symptoms went away with rest after approximately 10 to 15 minutes. He attempted to resume activities but had return of similar symptoms once again relieved by rest but significant enough to result in ER presentation. He noted similar event while in the ER for transiently. Currently comfortable without chest pain or discomfort initial EKG sinus tachycardia without ST segment abnormalities and first troponin negative. He was aware of heart pounding during last episode. Denies any history of arrhythmias, syncope or near syncope. Blood pressure has been generally controlled. No acute changes in weight but elevated. Does drink caffeinated and monster drinks but none today No bleeding difficulties melena hematochezia dysuria hematuria No fevers chills or unexplained infections Notes remote history of stomach ulcer but no recent symptoms denies indigestion or heartburn. Allergies Allergy/AdvReac Type Severity Reaction Status Date / Time No Known Allergies Allergy Verified 02/15/22 20:55 Home Medications Medication Instructions Recorded Confirmed Type lisinopril 20 mg tablet 20 mg PO HS 02/16/21 11/18/22 History albuterol sulfate 90 mcg/actuation 2 puff inhalation Q4H PRN 02/15/22 11/18/22 History aerosol inhaler COUGH/SHORTNESS OF BREATH metformin 500 mg tablet 500 mg PO BID 02/15/22 11/18/22 History Patient History Medical History (Updated 11/18/22 @ 16:14 by Chris Lim MD) Hypertension Surgical History Hx of appendectomy Social History Smoking Status: Current every day smoker Second Hand Exposure: No; Do You Dip or Chew Tobacco: No; Tobacco Cessation Education Requested by Patient: No Hx Alcohol Use: No Hx Substance Use: No Preferred Language: Persian Communication Ability: Effective 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 Beliefs That Will Affect Care: None marital status: Current Living Situation: Spouse Current Living Situation Comment: and four kids How many Children do You have: 4 Other Information That Helps Us Care for You: No Feels Safe at Home: Yes Safety Concerns: Feels Safe At This Time Assistive Devices: None Review of Systems Review of Systems: All systems reviewed & are unremarkable except as noted in HPI & below Results & Data Vital Signs (Past 12 Hours) Vital Signs Temp Pulse Pulse Resp BP BP Pulse Ox 11/18/22 14:31 36.8 C 101 H 14 128/81 98 11/18/22 14:31 11/18/22 13:31 84 20 161/84 H 97 11/18/22 13:01 87 16 126/90 97 11/18/22 13:18 57 L 11/18/22 12:31 93 H 20 141/86 H 98 11/18/22 12:10 92 H 14 131/102 H 97 11/18/22 11:30 99 H 18 119/82 96 11/18/22 11:05 110 H 22 107/74 93 11/18/22 10:56 113 H 11/18/22 10:36 36.3 C L 109 H 20 138/76 97 Pulse Ox O2 Del Method O2 Del Method 11/18/22 14:31 Room Air 11/18/22 14:31 97 Room Air 11/18/22 13:31 Room Air 11/18/22 13:01 Room Air 11/18/22 13:18 11/18/22 12:31 Room Air 11/18/22 12:10 Room Air 11/18/22 11:30 Room Air 11/18/22 11:05 Room Air 11/18/22 10:56 11/18/22 10:36 Room Air Laboratory Results Laboratory Results - last 24 hr 11/18/22 11/18/22 11/18/22 11:00 11:00 11:11 WBC 9.22 RBC 5.27 Hgb 14.4 POC Hgb 14.6 Hct 41.7 L POC Hct 43 MCV 79.1 L MCH 27.3 MCHC 34.5 RDW Std Deviation 37.6 RDW Coeff of [place] 13.2 Plt Count 353 MPV 9.6 Immature Gran % (Auto) 0.3 Neut % (Auto) 63.9 Lymph % (Auto) 26.8 [place] % (Auto) 7.6 Eos % (Auto) 1.1 Baso % (Auto) 0.3 Neut # (Auto) 5.89 Lymph # (Auto) 2.47 [place] # (Auto) 0.70 H Eos # (Auto) 0.10 Baso # (Auto) 0.03 Immature Gran # (Auto) 0.03 PT INR APTT PTT Ratio POC Sodium 140 POC Potassium 4.0 POC Chloride 105 POC Total CO2 23 L POC Anion Gap 17.0 POC BUN 25 H POC Creatinine 0.7 POC Glucose (other) 124 H POC Ioniz Calcium Aline 1.14 Total Bilirubin 0.5 Direct Bilirubin 0.1 AST 23 ALT 24 Alkaline Phosphatase 72 Troponin I High Sens 5.5 Total Protein 8.6 H Albumin 4.4 Lipase 16 SARS-CoV-2, RNA, NAAT 11/18/22 11/18/22 11/18/22 12:09 12:35 14:09 WBC RBC Hgb POC Hgb Hct POC Hct MCV MCH MCHC RDW Std Deviation RDW Coeff of [place] Plt Count MPV Immature Gran % (Auto) Neut % (Auto) Lymph % (Auto) [place] % (Auto) Eos % (Auto) Baso % (Auto) Neut # (Auto) Lymph # (Auto) [place] # (Auto) Eos # (Auto) Baso # (Auto) Immature Gran # (Auto) PT 11.3 INR 1.0 APTT 26.4 PTT Ratio 0.9 POC Sodium POC Potassium POC Chloride POC Total CO2 POC Anion Gap POC BUN POC Creatinine POC Glucose (other) POC Ioniz Calcium Aline Total Bilirubin Direct Bilirubin AST ALT Alkaline Phosphatase Troponin I High Sens 4.4 Total Protein Albumin Lipase SARS-CoV-2, RNA, NAAT NEGATIVE (1) Chest pain Chest pain type: unspecified Qualified Code(s): R07.9 - Chest pain, unspecified
--- NOTE | 2022-11-18 16:44 | History & Physical Report ---
Date of Service November 18, 2022 Assessment & Plan (1) Chest pain: Plan: Admit to telemetry Patient presenting for evaluation of chest pain. Symptoms resolved with administration of 1 sublingual nitroglycerin. Risk factors include HTN, DM type II, positive family history. CTA chest negative for dissection and PE however shows coronary artery calcifications. Initial troponin negative, EKG without acute ST changes. Cardiology consult, case discussed with Dr. Lim S/p full dose aspirin in ED, continue with ASA 81 mg daily. Also will initiate beta-martha therapy. Continue to trend troponins, start heparin if elevation or recurrence of symptoms N.p.o. after midnight, possible cardiac cath in a.m. (2) Hypertension: Plan: Typically managed on lisinopril 20 mg daily, will hold for now while starting metoprolol. Resume as BP allows. (3) DM type 2 (diabetes mellitus, type 2): Plan: Hgb A1c 6.9 in 07/2021 Hold metformin and utilize NovoLog per protocol while hospitalized Update A1c with a.m. labs (4) Pulmonary nodule: Plan: 3 mm left apical pulmonary nodule Outpatient follow-up DVT PROPHYLAXIS SQ Lovenox Patient seen in collaboration with Dr. Michel Solorzano spent a total of 75 minutes coordinating, documenting, and providing care for this patient excluding time spent in the performance of separately billed services. This included personally reviewing all current laboratories and imaging studies, medication reconciliation, outpatient chart review, and discussion with specialists. Admission and Anticipated Discharge Date Admission Date: November 18, 2022 History of Present Illness Chief Complaint: Chest pain Primary Care Provider: Bindu Johnson PA-C History obtained from patient and review of outpatient PCP records. 42-year-old male with PMH HTN, DM type II, and other problems listed below who presents to the ED for evaluation of chest pain. Patient reports that shortly before starting work this morning, he developed a left-sided chest pain that radiated into his back. Patient reports associated palpitations. Patient describes the pain as a tightening sensation. Discomfort lasted for about 10 minutes and then resolve on its own. Patient then began to work. 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 Patient reports pain came back quickly and he also had associated shortness of breath and lightheadedness. Patient was then brought to the ED for further evaluation. Pain intensified while patient is in the ED and he was diaphoretic. He received 1 sublingual nitroglycerin with resolution in his pain. Patient reports he otherwise has been feeling well recently. No other recent illnesses, fevers, chills. Denies abdominal pain, vomiting, diarrhea. No urinary symptoms. In the ED, CTA chest is negative for dissection however does show coronary artery calcifications. Initial troponin is negative, EKG without acute ST changes. Patient was also given a full dose aspirin. Allergies Allergy/AdvReac Type Severity Reaction Status Date / Time No Known Allergies Allergy Verified 02/15/22 20:55 Home Medications Medication Instructions Recorded Confirmed Type lisinopril 20 mg tablet 20 mg PO HS 02/16/21 11/18/22 History albuterol sulfate 90 mcg/actuation 2 puff inhalation Q4H PRN 02/15/22 11/18/22 History aerosol inhaler COUGH/SHORTNESS OF BREATH metformin 500 mg tablet 500 mg PO BID 02/15/22 11/18/22 History Past Med/Surg History Medical History DM type 2 (diabetes mellitus, type 2) Hypertension Surgical History Hx of appendectomy Family History Uncle Heart disease Uncle Heart disease Grandfather (Paternal) Heart disease Social History Smoking Status: Never smoker Second Hand Exposure: No; Do You Dip or Chew Tobacco: No; Tobacco Cessation Education Requested by Patient: No Hx Alcohol Use: No Hx Substance Use: Yes Prescribed Medications: Marijuana Preferred Language: Maltese Communication Ability: Effective 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 Beliefs That Will Affect Care: None marital status: Current Living Situation: Spouse Current Living Situation Comment: and four kids How many Children do You have: 4 Other Information That Helps Us Care for You: No Feels Safe at Home: Yes Safety Concerns: Feels Safe At This Time Assistive Devices: None Review of Systems Review of Systems: ROS per HPI, all other systems reviewed and negative Physical Exam Constitutional: WD/WN, vitals as above + obese ENMT: external ear and nose normal, oropharynx normal Respiratory: normal respiratory effort, lungs clear to auscultation Cardiovascular: Rate/Rhythm: regular rate and regular rhythm Vessels: normal peripheral pulses Extremities: no edema Gastrointestinal (Abdomen): normal bowel sounds, soft, nontender, no hepatosplenomegaly Musculoskeletal: no cyanosis or clubbing, extremities motor strength 5/5 Skin: no rashes, warm and dry Neurologic: PERRL, EOMI, accommodation nl, no face palsy, no dysarthria Psychiatric: A+Ox3, euthymic affect Results & Data Results & Data Vital Signs (Past 12 Hours) Vital Signs Temp Pulse Pulse Resp BP BP Pulse Ox 11/18/22 14:31 36.8 C 101 H 14 128/81 98 11/18/22 14:31 11/18/22 13:31 84 20 161/84 H 97 11/18/22 13:01 87 16 126/90 97 11/18/22 13:18 57 L 11/18/22 12:31 93 H 20 141/86 H 98 11/18/22 12:10 92 H 14 131/102 H 97 11/18/22 11:30 99 H 18 119/82 96 11/18/22 11:05 110 H 22 107/74 93 11/18/22 10:56 113 H 11/18/22 10:36 36.3 C L 109 H 20 138/76 97 Pulse Ox O2 Del Method O2 Del Method 11/18/22 14:31 Room Air 11/18/22 14:31 97 Room Air 11/18/22 13:31 Room Air 11/18/22 13:01 Room Air 11/18/22 13:18 11/18/22 12:31 Room Air 11/18/22 12:10 Room Air 11/18/22 11:30 Room Air 11/18/22 11:05 Room Air 11/18/22 10:56 11/18/22 10:36 Room Air Laboratory Results Short CBC 11/18/22 Range/Units 11:00 WBC 9.22 (4.8-10.8) K/ul Hgb 14.4 (14.0-18.0) g/dl Hct 41.7 L (42.0-52.0) % Plt Count 353 (130-400) K/uL Liver Function 11/18/22 Range/Units 11:00 Total Bilirubin 0.5 (0.2-1.0) mg/dl Direct Bilirubin 0.1 (0-0.2) mg/dl AST 23 (13-39) U/L ALT 24 (7-52) U/L Alkaline Phosphatase 72 (34-104) U/L Albumin 4.4 (3.4-5.0) gm/dl Diagnostic Findings Chest CTA 11/18/22 10:55 CT ANGIOGRAM OF THE CHEST COMBO CLINICAL HISTORY: Atypical chest pain. Thoracic back pain. COMPARISON STUDY: Chest x-ray dated 02/16/2021. TECHNIQUE: Before and following the IV administration of 120 cc of Optiray 320, CT angiogram of the chest was performed from the thoracic inlet to the upper abdomen utilizing the dissection protocol. Images are reviewed in the axial, sagittal, and coronal planes. 3-D MIPS images are created and assessed. IV contrast was administered without complication. A dose lowering technique was utilized adhering to the principles of ALARA. The examination is degraded by streak artifact from the right arm which could not be elevated above the chest. CT DOSE: 1495.19 mGycm FINDINGS: Thyroid: Imaged portions of the thyroid gland are normal in size and attenuation. Thoracic aorta: No intramural hematoma is seen only on the enhanced series. The thoracic aorta is normal in caliber and demonstrates 4-vessel variant arch anatomy. The left vertebral artery arises directly from the thoracic aorta. No dissection is seen. The arch vessels are widely patent. Pulmonary vasculature: The pulmonary trunk is normal in caliber. There are no filling defects identified in the central pulmonary vessels to suggest pulmonary embolus. Note that this examination was not protocoled to assess for pulmonary emboli. Heart: The heart is normal in size and without pericardial effusion. There is age advanced atherosclerotic calcification of the coronary arteries. Lungs and pleural spaces: There is no airspace consolidation or pleural effusion. A 3 mm left apical nodule is seen on image #60. Minimal secretions are noted in the trachea. Mediastinum: There is no mediastinal lymphadenopathy. Kailyn: Clear. Axillae: There is no axillary lymphadenopathy. Upper abdomen: A small hiatal hernia is noted. The liver is enlarged and steatotic. A 1.9 cm left adrenal nodule meets CT criteria for a fat-containing adenoma. Skeletal structures: No lytic or blastic bony lesions are seen. IMPRESSION: 1. Unremarkable CT angiogram of the thoracic aorta. 2. There is no airspace consolidation or pleural effusion. 3. Age advanced coronary artery calcification. Consider follow up with cardiology. 4. Hepatic steatosis. 5. There is a 3 mm left apical pulmonary nodule. If warranted this can be followed as per the Fleischner criteria. See below. 6. Additional findings as above. Please refer to below summary of Fleischner criteria recommendations for follow- up of incidental CT nodules (Nikki Rangel, Guidelines for management of small pulmonary nodules detected on CT scans: A statement from the Fleischner Society, Radiology 237: [phone].) SOLID NODULES Solitary nodule size: <6 mm * low risk patients: no follow-up needed * high risk patients: optional CT at 12 months Solitary nodule size: 6-8 mm * low risk patients: follow-up at 6-12 months, then consider further follow-up at 18-24 months * high risk patients: initial follow-up CT at 6-12 months and then at 18-24 months if no change Solitary nodule size: >8 mm * either low or high risk patients - consider follow-up CT at 3 months, and/or CT-PET, and/or biopsy Multiple nodules size: <6 mm * low risk patients: no routine follow-up * high risk patients: optional CT at 12 months Multiple nodules size: 6-8 mm * low risk patients: follow-up at 3-6 months, then consider further follow-up at 18-24 months * high risk patients: follow-up at 3-6 months, then at 18-24 months if no change Multiple nodules size: >8 mm * low risk patients: follow-up at 3-6 months, then consider further follow-up at 18-24 months * high risk patients: follow-up at 3-6 months, then at 18-24 months if no change Note: newly detected indeterminate nodule in persons 35 years of age or older. * low risk patients: minimal or absent history of smoking and/or other known risk factors * high risk patients: history of smoking or of other known risk factors (e.g. first degree relative with lung cancer, or exposure to asbestos, radon, uranium) * if a nodule up to 8 mm is partly solid or is ground glass further follow-up is required after 24 months to exclude possible slow growing adenocarcinoma (KALI) SUBSOLID NODULES Solitary pure ground-glass nodule * nodule size <6 mm - no CT follow-up required * nodule size >=6 mm - follow-up CT at 6-12 months, then every 2 years until 5 years Solitary part-solid nodule * nodule size <6 mm - no CT follow-up required * nodule size >=6 mm - follow-up CT at 3-6 months. If unchanged, and solid component remains <6 mm, then annual follow-up for 5 years Multiple subsolid nodules * nodule size <6 mm - follow-up CT at 3-6 months, consider further follow-up at 2 and 4 years if stable * nodule size >=6 mm - follow-up CT at 3-6 months, subsequent management based on the most suspicious nodule(s) ACT 112: Negative or not required by law. Electronically signed by: Vitaly Lozano M.D. 11/18/2022 12:29 PM Code Status & VTE Plan VTE Prophylaxis Plan VTE Prophylaxis will be ordered: Yes Supervising Physician Co-Signing Physician Notes Patient is a 42-year-old male with history of diabetes mellitus, hypertension and other medical problems presents with history of left-sided chest pain radiating to the back associated with palpitations, diaphoresis and chest tightness. Patient received nitroglycerin in ED which resolved his symptoms. Please review HPI for complete details of presentation. I personally reviewed blood work, imaging studies and EKG. on exam patient is morbidly obese, normocephalic atraumatic, EOMI, scant expiratory wheezes, normal breath sounds, S1-S2, no murmur, trace pedal edema, abdomen soft, nontender, normal bowel sounds, alert, awake, oriented, grossly no focal deficits. Patient is admitted for management of angina. Agree with aspirin, metoprolol, nitroglycerin as needed. Trend troponins, check resting echo. Cardiology consulted. Keep n.p.o. after midnight for possible cardiac cath tomorrow. I personally reviewed the record. Patient is interviewed and examined at bedside. Patient's care is coordinated with Tess Cordero NP. Please refer to the documentation above for details of patient's presentation and for discussion of other issues. (1) Chest pain Chest pain type: unspecified Qualified Code(s): R07.9 - Chest pain, unspecified
[2022-11-18] MEDS ORDERED: ENOXAPARIN INJ 40 MG/0.4 ML SYR SQ SCH (17:00)
[2022-11-18] MEDS: INSULIN ASPART PER UNIT CHARGE SC SCH ×2 (17:06→20:35)
--- NOTE | 2022-11-19 05:01 | Electrocardiogram Report ---
Test Reason : Blood Pressure : / mmHG Vent. Rate : 105 BPM Atrial Rate : 105 BPM P-R Int : 138 ms QRS Dur : 086 ms QT Int : 370 ms P-R-T Axes : 044 004 034 degrees QTc Int : 489 ms Sinus tachycardia Otherwise normal ECG When compared with ECG of 16-FEB-2021 12:32, No significant change was found Confirmed by Umair Greenfield ([id number]) on 11/19/2022 5:00:53 AM Referred By: Confirmed By:Umair Greenfield
[2022-11-19 07:48] LABS: Hematocrit (blood only) 41.9 % (42.0-52.0); Hemoglobin 13.8 g/dl (14.0-18.0); Mean Corpuscular Hemoglobin 27.1 pg (25.0-34.0); Mean Corpuscular Hgb Conc 32.9 g/dL (32.0-36.0); Mean Corpuscular Volume 82.2 fL (80.0-100.0); Mean Platelet Volume 9.5 fL (9.4-12.4); Platelet Count 305 K/uL (130-400); RDW Coefficient of Variation 13.5 % (11.5-14.5); White Blood Count 6.34 K/ul (4.8-10.8)
[2022-11-19] MEDS: INSULIN ASPART PER UNIT CHARGE SC SCH ×3 (08:03→13:13)
[2022-11-19 08:07] LABS: BUN Creatinine Ratio 34.4 (10-20); Chol HDL Ratio 4.5 (0-5); Creatinine Clr Calc Pharmacy 222.4 ml/min; Est GFR (African American) 144.8 ml/min; Est GFR (Non-African American) 124.9 ml/min; Magnesium 2.1 mg/dl (1.7-2.4); Potassium 4.4 mmol/L (3.5-5.1)
[2022-11-19] MEDS ORDERED: ASPIRIN 81 MG ECTAB PO SCH (09:00)
[2022-11-19] MEDS: METOPROLOL TARTRATE 25 MG TAB PO SCH (09:10)
[2022-11-19] MEDS ORDERED: niCARdipine HCL INJ 2.5 MG/ML 10 ML AMP ONE (10:13)
[2022-11-19] MEDS ORDERED: MIDAZOLAM HCL 1 MG/ML 2ML VIAL ONE (10:13)
[2022-11-19] MEDS ORDERED: HEPARIN (PORCINE) 1000 UNIT/ML 10 ML (CATH LAB USE ONLY) ONE (10:13)
[2022-11-19] MEDS ORDERED: fentaNYL citrate PF 100 MCG/2 ML VIAL ONE (10:13)
[2022-11-19] MEDS ORDERED: NITROGLYCERIN/D5W 100MCG/ML 20ML SYR ONE (10:14)
--- NOTE | 2022-11-19 10:33 | Cardiology Progress Note ---
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 Episode strongly suggestive of new onset angina without overt other cause. Initial troponin and EKGs without acute injury. Echocardiogram pending Aspirin administered in ER We will begin beta-martha Anticoagulate with any rise in troponin or recurrence of symptoms Keep n.p.o. after midnight for further evaluation with likely proceeding to diagnostic cardiac catheterization unless other findings develop 11/19/2022. No acute issues overnight. Concerns as listed above with strongly concerning symptoms and patient with multiple risk factors including hypertension diabetes mellitus premature coronary disease and family history and significant coronary calcification on CT Imaging limitation secondary to body habitus make of stress testing less likely to be diagnostic or reassuring given symptom presentation. Vigorously active with acute change Recommended proceeding with diagnostic coronary angiography today. Procedure and risks explained in detail to the patient. Agreeable Admission and Anticipated Discharge Date Admission Date: November 18, 2022 Subjective Patient seen and examined, chart, medications, telemetry reviewed. No chest pain or discomfort overnight. No arrhythmias on telemetry. Initial troponins remain negative Echocardiogram without distinct segmental abnormality with limitation secondary to body habitus Review of Systems Review of Systems: All systems reviewed & are unremarkable except as noted in Subjective Physical Exam Constitutional: WD/WN, vitals as above + obese; no acute distress Eyes: PERRL, conjunctivae normal, anicteric sclerae ENMT: external ear and nose normal, oropharynx normal Neck: trachea midline, no thyromegaly Respiratory: normal respiratory effort, lungs clear to auscultation Cardiovascular: RRR, no murmur, no edema Gastrointestinal (Abdomen): normal bowel sounds, soft, nontender, no hepatosplenomegaly Musculoskeletal: no cyanosis or clubbing, extremities motor strength 5/5 Results & Data Vital Signs (Past 12 Hours) Vital Signs Temp Pulse Pulse Resp BP Pulse Ox O2 Del Method 11/19/22 10:22 76 16 146/91 H 98 Room Air 11/19/22 07:52 36.6 C 87 18 129/68 97 Room Air 11/19/22 07:34 83 11/19/22 03:30 36.5 C 68 16 106/66 98 Room Air 11/18/22 23:02 36.8 C 75 16 125/80 97 Room Air (1) Chest pain Chest pain type: unspecified Qualified Code(s): R07.9 - Chest pain, unspecified
--- NOTE | 2022-11-19 11:03 | Pre Anesthesia Assessment ---
Date of Service November 19, 2022 Pre Sedation Assessment Vital Signs Temp Pulse Pulse Resp BP BP Pulse Ox 11/19/22 10:22 76 16 146/91 H 98 11/19/22 07:52 97.9 F 87 18 129/68 97 11/19/22 07:34 83 11/19/22 03:30 97.7 F 68 16 106/66 98 11/18/22 22:03 74 11/18/22 23:02 98.2 F 75 16 125/80 97 11/18/22 19:44 98.2 F 80 18 121/75 95 11/18/22 17:35 98.1 F 100 H 18 134/64 97 11/18/22 14:31 98.2 F 101 H 14 128/81 98 11/18/22 14:31 11/18/22 13:31 84 20 161/84 H 97 11/18/22 13:01 87 16 126/90 97 11/18/22 13:18 57 L 11/18/22 12:31 93 H 20 141/86 H 98 11/18/22 12:10 92 H 14 131/102 H 97 11/18/22 11:30 99 H 18 119/82 96 11/18/22 11:05 110 H 22 107/74 93 Pulse Ox O2 Del Method O2 Del Method 11/19/22 10:22 Room Air 11/19/22 07:52 Room Air 11/19/22 07:34 11/19/22 03:30 Room Air 11/18/22 22:03 11/18/22 23:02 Room Air 11/18/22 19:44 Room Air 11/18/22 17:35 Room Air 11/18/22 14:31 Room Air 11/18/22 14:31 97 Room Air 11/18/22 13:31 Room Air 11/18/22 13:01 Room Air 11/18/22 13:18 11/18/22 12:31 Room Air 11/18/22 12:10 Room Air 11/18/22 11:30 Room Air 11/18/22 11:05 Room Air Cardiovascular RRR, no murmur, no edema Respiratory normal respiratory effort, lungs clear to auscultation Pre-Sedation Airway Assessment Smoking Status: Never smoker Hx Sleep Apnea: No Hx Difficult Intubation: No Short, Thick Neck: No Thyromental Distance: > or= 3.5 Finger Breadths Oral Cavity: + WNL Mallampati Class: III ASA: ASA3 NPO Status Date of Last Intake of Fluids: 11/18/22 Time of Last Intake of Fluids: 22:00 Date of Last Intake of Solid Food: 11/18/22 Time of Last Intake of Solid Foods: 22:00 Procedure Planning Contraindications for Sedation: none Current Medications Reviewed: Yes Notes The planned sedation has been discussed with the patient. Informed Consent was obtained. I have identified the patient, determined the appropriateness of sedation and have assessed the patient immediately prior to the procedure. All medicine(s) and interventions are by my order.
--- NOTE | 2022-11-19 12:02 | Post Anesthesia Assessment ---
Date of Service November 19, 2022 Post Sedation Assessment Vital Signs Temp Pulse Pulse Resp BP BP Pulse Ox 11/19/22 11:45 75 14 168/108 H 97 11/19/22 11:30 98.4 F 79 14 165/105 H 96 11/19/22 10:22 76 16 146/91 H 98 11/19/22 07:52 97.9 F 87 18 129/68 97 11/19/22 07:34 83 11/19/22 03:30 97.7 F 68 16 106/66 98 11/18/22 22:03 74 11/18/22 23:02 98.2 F 75 16 125/80 97 11/18/22 19:44 98.2 F 80 18 121/75 95 11/18/22 17:35 98.1 F 100 H 18 134/64 97 11/18/22 14:31 98.2 F 101 H 14 128/81 98 11/18/22 14:31 11/18/22 13:31 84 20 161/84 H 97 11/18/22 13:01 87 16 126/90 97 11/18/22 13:18 57 L 11/18/22 12:31 93 H 20 141/86 H 98 11/18/22 12:10 92 H 14 131/102 H 97 Pulse Ox O2 Del Method O2 Del Method 11/19/22 11:45 Room Air 11/19/22 11:30 Room Air 11/19/22 10:22 Room Air 11/19/22 07:52 Room Air 11/19/22 07:34 11/19/22 03:30 Room Air 11/18/22 22:03 11/18/22 23:02 Room Air 11/18/22 19:44 Room Air 11/18/22 17:35 Room Air 11/18/22 14:31 Room Air 11/18/22 14:31 97 Room Air 11/18/22 13:31 Room Air 11/18/22 13:01 Room Air 11/18/22 13:18 11/18/22 12:31 Room Air 11/18/22 12:10 Room Air Recovery Score Activity: Moves 4 extremities Respiration: Deep Breath/Cough Circulation: +/-20% PreAnes Value Consciousness: Fully Awake Oxygen Saturation: O2 needed for >90% Discharge Sedation Level of Care: Fast Track Phase II Post Sedation Plan On clinical assessment, the patient appears to have tolerated the sedation without complications. Patient is recovering as anticipated. Patient will continue to be monitored by nursing and may be discharged when sedation discharge criteria are met per below protocol. Upon Completions of procedure up to 15 minutes continue every 5 minute vital signs and the P.A.R. score; then discharge to a Phase I or Fast Track to Phase II per the following guidelines: * Discharge Patient to appropriate Phase II area if PAR is 8 or greater or return to pre- procedure baseline. The post - procedure orders will be as directed. * If PAR score is less than 8 or not return to pre-procedure baseline then patient will follow Phase I monitoring till PAR is reached for Phase II. The Phase I may be done in procedure room or may call to secure a Phase I area. * If naloxone or flumazenil are used for reversal, hold in Phase I for continued monitoring from when last reversal dose was given for a minimum of 60 minutes or longer pending the nurse and/or physician discretion of patient condition before discharge to Phase II. Please call the Sedation Physician to re-evaluate and complete post-note for discharge to Phase II area. Do NOT discharge from procedure sedation or Phase 1 until post- sedation evaluation note is complete by procedure /sedation MD Sedation Discharge Instructions to be given to the patient at discharge to home.
--- NOTE | 2022-11-19 12:19 | Cardiac Catheterization ---
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 Cardiac Status Clinical evaluation leading to the procedure CAD Presenation: Unstable angina Anginal Classification: CCS IV Diagnostic Physicians Name: Anup Nelson MD Closure Device Recommendations: Medical Therapy and/or Counseling Cardiac Cath Procedure Full Procedure Date November 19, 2022 Pre-Procedure Diagnosis Pre-Procedure Diagnosis: Angina AUC Score AUC Score: 7 Post-Procedure Diagnosis Post-Procedure Diagnosis: Mild CAD and Elevated Intracardiac Pressures Procedure(s) Performed Procedure(s) Performed: Coronary Angiography, Left Heart Cath and IVUS Venue Manager Anup Nelson MD Network Systems Analyst(s) Felisa Estimated Blood Loss Estimated Blood Loss: 5 Medication(s) Medication(s): Fentanyl, Heparin, Lidocaine 1%, Nicardipine, Nitroglycerin and Versed Summary of Findings Indication: Suspected ACS Access: 6 Fr right radial artery Catheters: [place], EBU 3.5 guide Findings: LM -large caliber, no significant disease LAD -large caliber, midsegment luminal irregularities, distal vessel wraps around apex. Large high first diagonal without significant disease Circumflex -large caliber, no significant disease. Medium left PLB without disease. Ramushazy ostial stenosis angiographically (30 to 40% by IVUS with eccentric mildly calcified plaque). RCA -dominant, medium caliber, mid and distal segment luminal regularities. PDA/PAV without significant disease. LVEDP - 23 Arterial Closure: TR Band Summary: 1. Mild nonobstructive coronary artery disease - 30-40% ostial Ramus 2. Elevated intracardiac filling pressure Recommendations: Continued ASCVD risk factor modification and blood pressure control per Dr. Lim Hemodynamics Rest Ao:: 137/98/116 Final Ao: 141/96/126 LV: 135/23 Recommendations Recommendations: Medical Therapy and/or Counseling Specimens Specimens: None Radiation Exposure (mGy) 1523 Contrast (mls) 80 Drains Drains: none Anesthesia moderate [id number] Procedural Complication(s) None Disposition PCU I attest to the content of the Intraoperative Record and any orders documented therein. Any exceptions are noted below. [facility] [place] Card Cath Procedure Codes Cardiac Catheterization Procedure 1: Cardiovascular Cath Procedures: 91147 Coronaries and LHC (+/-LV) Therapeutic Services & Ancillary Procedure 1: Cardiovascular Tx and Anc Procedures: 37012 Ultrasonic Guidance Vascular Access Moderate Sedation Procedure 1: Sedation/Anesthesia: 56742 Mod Sedation by the same physician;Init15 Min Child Age 5 & Up PG Care Time/CCT Total # of Minutes Spent Total Time Spent with Patient: Total time spent is greater than 50% in coordination of care (as documented) at patient's floor/unit and/or counseling patient:
--- NOTE | 2022-11-19 13:28 | Communication Note ---
Date of Service: November 19, 2022 Patient seen and examined postcardiac catheterization. Tolerated procedure well. Study demonstrated mild nonobstructive atherosclerotic coronary disease with elevated left end-diastolic pressure Impression: Concerning symptoms of exertional chest pain and multiple risk factors. No high-grade coronary obstruction discerned Echocardiogram and cardiac catheterization consistent with hypertensive heart disease Recommendations: Continue metoprolol tartrate 25 mg twice per day, continue lisinopril 20 mg/day Given mild atherosclerosis on cardiac catheterization, coronary calcifications on CT scan, diabetes mellitus, patient warrants moderate dose lipid-lowering therapy would recommend rosuvastatin 10mg/ day Needs follow-up with PCP regarding lifestyle modifications Sodium restriction Follow-up cardiology [address] to [address] Lim
[2022-11-19 13:43] LABS: Estimated Average Glucose 143 mg/dl; Hemoglobin A1C 6.6 % (4.5-5.6)
--- NOTE | 2022-11-19 13:54 | Electrocardiogram Report ---
Test Reason : Blood Pressure : / mmHG Vent. Rate : 076 BPM Atrial Rate : 076 BPM P-R Int : 154 ms QRS Dur : 086 ms QT Int : 414 ms P-R-T Axes : 022 027 033 degrees QTc Int : 465 ms Normal sinus rhythm Normal ECG When compared with ECG of 18-NOV-2022 10:43, No significant change was found Confirmed by Alonso Chung ([id number]) on 11/19/2022 1:54:10 PM Referred By: REFERRED SELF Confirmed By:Alonso Chung
--- NOTE | 2022-11-19 14:14 | Discharge Summary ---
Date of Service November 19, 2022 Admission HPI Per Admitting Provider History obtained from patient and review of outpatient PCP records. 42-year-old male with PMH HTN, DM type II, and other problems listed below who presents to the ED for evaluation of chest pain. Patient reports that shortly before starting work this morning, he developed a left-sided chest pain that radiated into his back. Patient reports associated palpitations. Patient describes the pain as a tightening sensation. Discomfort lasted for about 10 minutes and then resolve on its own. Patient then began to work. 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 Patient reports pain came back quickly and he also had associated shortness of breath and lightheadedness. Patient was then brought to the ED for further evaluation. Pain intensified while patient is in the ED and he was diaphoretic. He received 1 sublingual nitroglycerin with resolution in his pain. Patient reports he otherwise has been feeling well recently. No other recent illnesses, fevers, chills. Denies abdominal pain, vomiting, diarrhea. No urinary symptoms. In the ED, CTA chest is negative for dissection however does show coronary artery calcifications. Initial troponin is negative, EKG without acute ST changes. Patient was also given a full dose aspirin. Admission Exam Per Admitting Provider Constitutional: WD/WN, vitals as above + obese ENMT: external ear and nose normal, oropharynx normal Respiratory: normal respiratory effort, lungs clear to auscultation Cardiovascular: Rate/Rhythm: regular rate and regular rhythm Vessels: normal peripheral pulses Extremities: no edema Gastrointestinal (Abdomen): normal bowel sounds, soft, nontender, no hepatosplenomegaly Musculoskeletal: no cyanosis or clubbing, extremities motor strength 5/5 Skin: no rashes, warm and dry Neurologic: PERRL, EOMI, accommodation nl, no face palsy, no dysarthria Psychiatric: A+Ox3, euthymic affect Principal Diagnosis Noncardiac chest pain, nonobstructive coronary disease, hypertension, diastolic, morbid obesity Discharge Exam General: Morbidly obese male, lying comfortably in bed, not in distress, on room air HEENT: EOMI, ELISABETH, MMM Chest: Clear breath sounds bilaterally, no wheezes or crackles CVS: Regular rate and rhythm, normal heart sounds, no murmur Abdomen: Soft, non tender, not distended, normal bowel sounds Neuro: Awake, alert, oriented, conversing well, non focal Extremities: No cyanosis, clubbing or edema Discharge Data Allergies Allergy/AdvReac Type Severity Reaction Status Date / Time No Known Allergies Allergy Verified 02/15/22 20:55 Consultations 11/18/22 12:57 ED Decision to Admit Stat 11/18/22 15:48 Consult Cardiology Routine Procedures Performed Operation Date: 11/19/22 11:30 Actual Procedures p Cineradiography w/Routine Exam - Amilcar Nelson MD p Cath, Left with Cors and Vent - Amilcar Nelson MD s IVUS Coronary Single Vessel - Amilcar Nelson MD Ordered Studies 11/18/22 10:55 CT angio chest dissec wo/w con Stat 11/19/22 06:29 CL Cath Imgs for PACS use only Routine Laboratory Results WBC 6.34 K/ul (4.8-10.8) 11/19/22 07:11 RBC 5.10 M/uL (4.70-6.10) 11/19/22 07:11 Hgb 13.8 g/dl (14.0-18.0) L 11/19/22 07:11 POC Hgb 14.6 g/dl (14.0-18.0) 11/18/22 11:11 Hct 41.9 % (42.0-52.0) L 11/19/22 07:11 POC Hct 43 % (42-52) 11/18/22 11:11 MCV 82.2 fL (80.0-100.0) 11/19/22 07:11 MCH 27.1 pg (25.0-34.0) 11/19/22 07:11 MCHC 32.9 g/dL (32.0-36.0) 11/19/22 07:11 RDW Std Deviation 40.0 fL (36.4-46.3) 11/19/22 07:11 RDW Coeff of Felton 13.5 % (11.5-14.5) 11/19/22 07:11 Plt Count 305 K/uL (130-400) 11/19/22 07:11 MPV 9.5 fL (9.4-12.4) 11/19/22 07:11 Immature Gran % (Auto) 0.3 % 11/18/22 11:00 Neut % (Auto) 63.9 % 11/18/22 11:00 Lymph % (Auto) 26.8 % 11/18/22 11:00 [place] % (Auto) 7.6 % 11/18/22 11:00 Eos % (Auto) 1.1 % 11/18/22 11:00 Baso % (Auto) 0.3 % 11/18/22 11:00 Neut # (Auto) 5.89 K/uL (1.40-6.50) 11/18/22 11:00 Lymph # (Auto) 2.47 K/uL (1.2-3.4) 11/18/22 11:00 [place] # (Auto) 0.70 K/uL (0.11-0.59) H 11/18/22 11:00 Eos # (Auto) 0.10 K/uL (0-0.50) 11/18/22 11:00 Baso # (Auto) 0.03 K/uL (0-0.2) 11/18/22 11:00 Immature Gran # (Auto) 0.03 K/uL (0.01-0.20) 11/18/22 11:00 PT 11.3 Seconds (9.0-12.0) 11/18/22 12:35 INR 1.0 (0.9-1.1) 11/18/22 12:35 APTT 26.4 Seconds (21.0-31.0) 11/18/22 12:35 PTT Ratio 0.9 11/18/22 12:35 POC Sodium 140 mmol/L (135-144) 11/18/22 11:11 Sodium 136 mmol/L (136-145) 11/19/22 07:11 POC Potassium 4.0 mmol/L (3.3-5.0) 11/18/22 11:11 Potassium 4.4 mmol/L (3.5-5.1) 11/19/22 07:11 POC Chloride 105 mmol/L (101-112) 11/18/22 11:11 Chloride 105 mmol/L (98-107) 11/19/22 07:11 Carbon Dioxide 23 mmol/L (21-32) 11/19/22 07:11 POC Total CO2 23 mmol/L (24-31) L 11/18/22 11:11 Anion Gap 8 (3-11) 11/19/22 07:11 POC Anion Gap 17.0 mmol/L (16-25) 11/18/22 11:11 POC BUN 25 mg/dl (7-18) H 11/18/22 11:11 BUN 21 mg/dl (6-23) 11/19/22 07:11 Creatinine 0.61 mg/dl (0.6-1.4) 11/19/22 07:11 POC Creatinine 0.7 mg/dl (0.6-1.3) 11/18/22 11:11 Est Cr Clr Drug Dosing 222.4 ml/min 11/19/22 07:11 Est GFR ( Amer) 144.8 ml/min 11/19/22 07:11 Est GFR (Non-Af Amer) 124.9 ml/min 11/19/22 07:11 BUN/Creatinine Ratio 34.4 (10-20) H 11/19/22 07:11 Glucose 108 mg/dl (70-99(Fasting)) H 11/19/22 07:11 POC Glucose 79 mg/dl (70-99) 11/19/22 12:23 POC Glucose (other) 124 mg/dl (70-99) H 11/18/22 11:11 Estimat Average Glucose 143 mg/dl 11/19/22 07:11 Hemoglobin A1c 6.6 % (4.5-5.6) H 11/19/22 07:11 Calcium 9.0 mg/dl (8.6-10.3) 11/19/22 07:11 POC Ioniz Calcium Aline 1.14 mmol/l (1.12-1.32) 11/18/22 11:11 Magnesium 2.1 mg/dl (1.7-2.4) 11/19/22 07:11 Total Bilirubin 0.5 mg/dl (0.2-1.0) 11/18/22 11:00 Direct Bilirubin 0.1 mg/dl (0-0.2) 11/18/22 11:00 AST 23 U/L (13-39) 11/18/22 11:00 ALT 24 U/L (7-52) 11/18/22 11:00 Alkaline Phosphatase 72 U/L (34-104) 11/18/22 11:00 Troponin I High Sens 4.1 pg/ml (0-20) 11/19/22 01:01 Total Protein 8.6 gm/dl (6.0-8.3) H 11/18/22 11:00 Albumin 4.4 gm/dl (3.4-5.0) 11/18/22 11:00 Triglycerides 163 mg/dl (0-150) H 11/19/22 07:11 Cholesterol 177 mg/dl (0-200) 11/19/22 07:11 LDL Cholesterol, Calc 105 mg/dl 11/19/22 07:11 VLDL Cholesterol, Calc 33 mg/dl (0-30) H 11/19/22 07:11 HDL Cholesterol 39 mg/dl 11/19/22 07:11 Cholesterol/HDL Ratio 4.5 (0-5) 11/19/22 07:11 Lipase 16 U/L (11-82) 11/18/22 11:00 SARS-CoV-2, RNA, NAAT NEGATIVE (NEGATIVE) 11/18/22 12:09 Impressions Chest CTA 11/18/22 10:55 CT ANGIOGRAM OF THE CHEST COMBO CLINICAL HISTORY: Atypical chest pain. Thoracic back pain. COMPARISON STUDY: Chest x-ray dated 02/16/2021. TECHNIQUE: Before and following the IV administration of 120 cc of Optiray 320, CT angiogram of the chest was performed from the thoracic inlet to the upper abdomen utilizing the dissection protocol. Images are reviewed in the axial, sagittal, and coronal planes. 3-D MIPS images are created and assessed. IV c ontrast was administered without complication. A dose lowering technique was utilized adhering to the principles of ALARA. The examination is degraded by streak artifact from the right arm which could not be elevated above the chest. CT DOSE: 1495.19 mGycm FINDINGS: Thyroid: Imaged portions of the thyroid gland are normal in size and attenuation. Thoracic aorta: No intramural hematoma is seen only on the enhanced series. The thoracic aorta is normal in caliber and demonstrates 4-vessel variant arch anatomy. The left vertebral artery arises directly from the thoracic aorta. No dissection is seen. The arch vessels are widely patent. Pulmonary vasculature: The pulmonary trunk is normal in caliber. There are no filling defects identified in the central pulmonary vessels to suggest pulmonary embolus. Note that this examination was not protocoled to assess for pulmonary emboli. Heart: The heart is normal in size and without pericardial effusion. There is age advanced atherosclerotic calcification of the coronary arteries. Lungs and pleural spaces: There is no airspace consolidation or pleural effusion. A 3 mm left apical nodule is seen on image #60. Minimal secretions are noted in the trachea. Mediastinum: There is no mediastinal lymphadenopathy. Kailyn: Clear. Axillae: There is no axillary lymphadenopathy. Upper abdomen: A small hiatal hernia is noted. The liver is enlarged and steatotic. A 1.9 cm left adrenal nodule meets CT criteria for a fat-containing adenoma. Skeletal structures: No lytic or blastic bony lesions are seen. IMPRESSION: 1. Unremarkable CT angiogram of the thoracic aorta. 2. There is no airspace consolidation or pleural effusion. 3. Age advanced coronary artery calcification. Consider follow up with cardiology. 4. Hepatic steatosis. 5. There is a 3 mm left apical pulmonary nodule. If warranted this can be followed as per the Fleischner criteria. See below. 6. Additional findings as above. Please refer to below summary of Fleischner criteria recommendations for follow- up of incidental CT nodules (Nikki Rangel, Guidelines for management of small pulmonary nodules detected on CT scans: A statement from the Fleischner Society, Radiology 237: [phone].) SOLID NODULES Solitary nodule size: <6 mm * low risk patients: no follow-up needed * high risk patients: optional CT at 12 months Solitary nodule size: 6-8 mm * low risk patients: follow-up at 6-12 months, then consider further follow-up at 18-24 months * high risk patients: initial follow-up CT at 6-12 months and then at 18-24 months if no change Solitary nodule size: >8 mm * either low or high risk patients - consider follow-up CT at 3 months, and/or CT-PET, and/or biopsy Multiple nodules size: <6 mm * low risk patients: no routine follow-up * high risk patients: optional CT at 12 months Multiple nodules size: 6-8 mm * low risk patients: follow-up at 3-6 months, then consider further follow-up at 18-24 months * high risk patients: follow-up at 3-6 months, then at 18-24 months if no change Multiple nodules size: >8 mm * low risk patients: follow-up at 3-6 months, then consider further follow-up at 18-24 months * high risk patients: follow-up at 3-6 months, then at 18-24 months if no change Note: newly detected indeterminate nodule in persons 35 years of age or older. * low risk patients: minimal or absent history of smoking and/or other known risk factors * high risk patients: history of smoking or of other known risk factors (e.g. first degree relative with lung cancer, or exposure to asbestos, radon, uranium) * if a nodule up to 8 mm is partly solid or is ground glass further follow-up is required after 24 months to exclude possible slow growing adenocarcinoma (KALI) SUBSOLID NODULES Solitary pure ground-glass nodule * nodule size <6 mm - no CT follow-up required * nodule size >=6 mm - follow-up CT at 6-12 months, then every 2 years until 5 years Solitary part-solid nodule * nodule size <6 mm - no CT follow-up required * nodule size >=6 mm - follow-up CT at 3-6 months. If unchanged, and solid component remains <6 mm, then annual follow-up for 5 years Multiple subsolid nodules * nodule size <6 mm - follow-up CT at 3-6 months, consider further follow-up at 2 and 4 years if stable * nodule size >=6 mm - follow-up CT at 3-6 months, subsequent management based on the most suspicious nodule(s) ACT 112: Negative or not required by law. Electronically signed by: Vitaly Lozano M.D. 11/18/2022 12:29 PM Hospital Course (1) Chest pain: - Resolved. No chest pain since admission. Telemetry, echo and EKG reviewed. Seen by cardiology. He underwent cardiac cath today which showed nonobstructive coronary disease as below. Given his multiple risk factors and hypertensive heart disease, he is being discharged on metoprolol twice daily, lisinopril 20 Mg daily and Crestor 10 Mg daily per cardiology recommendation. -He will follow-up with PCP in a week and cardiology in 6 to 8 weeks. -Recommend follow-up with PCP for lifestyle modifications, weight loss and sodium restrictions Echo-EF 55 to 50%, grade 1 diastolic dysfunction, no seen valvular heart disease, moderate concentric LVH, LV wall motion normal Cardiac cath findings LM -large caliber, no significant disease LAD -large caliber, midsegment luminal irregularities, distal vessel wraps around apex. Large high first diagonal without significant disease Circumflex -large caliber, no significant disease. Medium left PLB without disease. Ramushazy ostial stenosis angiographically (30 to 40% by IVUS with eccentric mildly calcified plaque). RCA -dominant, medium caliber, mid and distal segment luminal regularities. PDA/PAV without significant disease. Summary: 1. Mild nonobstructive coronary artery disease - 30-40% ostial Ramus 2. Elevated intracardiac filling pressure Recommendations: Continued ASCVD risk factor modification and blood pressure control per Dr. Lim (2) Pulmonary nodule: 3 mm left apical pulmonary nodule Recommend outpatient follow-up with PCP with repeat CT as indicated based on risk factors. (3) Morbid obesity due to excess calories: BMI 50. Weight loss recommended. Follow-up with PCP. (4) Hypertension: Continue lisinopril. Added metoprolol 25 twice daily (5) DM type 2 (diabetes mellitus, type 2): Hgb A1c 6.6 Continue metformin. follow-up with PCP Plan Patient was seen and examined postcardiac cath again. He remains stable. Comfortable and stable for discharge home. Updated at bedside. Total Time Total Time Spent Total Time Spent (In Minutes): 45 Discharge Plan Discharge Items Patient Disposition: Home - Self-Care Reason For Visit: CHEST PAIN Discharge Diagnosis: Non cardiac chest pain, non obstructive CAD, DM, HTN Condition on Discharge: Good Activity: Per Instructions section Non-emergency contact: Primary Care Provider Call non-emergency contact if: you have any medication questions, your symptoms worsen and your pain is concerning for you Follow-up/Referrals: Bindu Johnson PA-C [Primary Care Provider] - 11/24/22 11:40 am (Date & Time 11/24/2022 11:40 AM Provider Yeni Álvarez PA-C Department Family [facility] ) Diet: Carb Consistent or DM2 and Low Sodium (2gm) Addtl Attending Provider Instructions: You have been started on new medicines metoprolol twice daily and rosuvastatin daily per cardiology Follow up with your family doctor in a week for lifestyle modification as well as further management of your blood pressure, diabetes and cholesterol You were found to have a 3 mm lung nodule in your CT chest. We recommend following up with PCP for surveillance of this lung nodule with repeat CT as warranted. Follow up with Contract Administrative Assistant Dr Lim in 6-8 weeks Recommend weight loss ACTIVITY RECOMMENDATIONS: Excess manipulation of the wrist should be avoided for the next 24-48 hours. * No lifting over 2 pounds (approximately a 1/2 gallon of milk) with the utilized arm for 24 hours. * No strenuous activity such as bowling or tennis for 3 days. * Keep the site of the procedure covered with a bandage for 24 hours. *You may shower the day after the procedure. Do not take a tub bath or submerge the puncture site in water for the next 3 days. *Do not operate any motorized equipment for 3 days. SPECIAL CARE INSTRUCTIONS: The site may be slightly bruised and sore following your procedure. Should any of the following occur, contact the Dr. who performed your procedure. 1. Redness/inflammation, swelling, chills, or fever, or colored drainage at procedure site within 3-7 days after your procedure. 2. Coldness, discoloration, ongoing numbness, severe pain, or swelling. Expect mild tingling of hand and tenderness at the puncture site for up to three days. If this persists beyond three days, or other symptoms develop, notify the Dr. who performed your procedure. BLEEDING: If the procedure site on your wrist begins to bleed, do not panic 1. Place 1 or 2 fingers firmly just slightly above the insertion site to stop the bleeding. You may be able to feel your pulse as you hold pressure. 2. Lift your finger after 5 minutes to see if the bleeding has stopped. 3. Once the bleeding has stopped, gently wipe the wrist area clean with a bandage. * If the bleeding from your wrist does not stop after 10 minutes, or if there is a large amount of bleeding or spurting, call 911 (do not drive yourself to the hospital). SKIN IRRITATION: * You may experience some redness and/or swelling in the area where radiation was administered. If any skin irritation occurs, please contact your family physician. FOLLOW UP VISIT: Keep any scheduled doctor appointments. Pending Studies at Discharge: No Stand-Alone Forms: [employer], Smoking Cessation Medications and DC Order Prescriptions: New metoprolol tartrate 25 mg Tablet 25 mg PO BID 30 Days Qty: 60 0RF rosuvastatin [Crestor] 10 mg tablet 10 mg PO HS Qty: 30 0RF Continued metformin 500 mg tablet 500 mg PO BID albuterol sulfate 90 mcg/actuation HFA aerosol inhaler 2 puff INHALATION Q4H PRN (Reason: COUGH/SHORTNESS OF BREATH) lisinopril 20 mg tablet 20 mg PO HS Discharge Orders: Discharge Order (Routine); Ordered 11/19/22 Ordered By: Chong Bernard Admission Data Admit Date/Time: 11/18/22 13:01 Attending Provider: Chong Bernard Admit Provider: Taz Pearson Primary Care Provider: Bindu Johnson Other Providers: Chris Lim ; Taz Pearson
== END 2022-11-19 15:57 | disposition home or self-care (01) ==
LOC: ED 10:35 → 2S 10:35 → SUATTDRO 13:01 → 2S 13:54